=== PATIENT | female | born 1945 | race Caucasian/White ===

== ENCOUNTER 2017-03-15 09:22 | Outpatient (CLI) | payer MEDICARE, OTHER ==
--- NOTE | 2017-03-16 18:06 | Mammography Report ---
DIGITAL SCREENING MAMMOGRAM: 03/15/2017 CLINICAL INDICATION: A 71-year-old with history of benign right breast biopsy for screening. COMPARISON: 05/2015, 10/2013, 04/2012, 02/2011, 01/2010. TECHNIQUE: Routine CC and MLO projections were obtained of the breasts. FINDINGS: The breasts again demonstrate scattered fibroglandular densities bilaterally. A few punct ate, typically benign calcifications are present. No suspicious masses, clustered microcalcification s, or regions of architectural distortion are identified. IMPRESSION: BENIGN FINDINGS. RECOMMENDATION: Routine annual screening unless otherwise clinically indicated. BI-RADS category 2, benign findings. STANDARD QUALIFYING STATEMENTS 1. This examination was reviewed with the aid of Computer-Aided Detection (CAD). 2. A negative or benign imaging report should not delay biopsy if clinically suspicious findings are present. Consider surgical consultation if warranted. More than 5% of cancers are not identified by i maging. 3. Dense breasts may obscure an underlying neoplasm. JOB #: [id number] EXT JOB #:[id number]
== END 2017-03-15 09:23 | disposition home or self-care (01) ==
LOC: DI 09:22
PROVIDERS: ATTEND Family Medicine
DX: Z12.31 Encounter for screening mammogram for malignant neoplasm of breast (principal)
CPT/HCPCS: 77067

== ENCOUNTER 2017-03-18 08:24 | Outpatient (CLI) | payer MEDICARE, OTHER ==
[2017-03-18 13:30] LABS: ALBUMIN/GLOBULIN RATIO 1.1 (1.0-2.2); BILIRUBIN,TOTAL 0.7 mg/dL (0.2-1.0); BUN - BLOOD UREA NITROGEN 20 mg/dL (6-20); CALCIUM 9.4 mg/dL (8.5-10.3); CARBON DIOXIDE - CO2 28 mmol/L (21-32); CHLORIDE 98 mmol/L (101-111); CHOL/HDL RATIO 3.2 (<4.4); CHOLESTEROL 213 mg/dL; CREATININE 0.7 mg/dL (0.4-1.0); GFR - MDRD 82 (>89); GLUCOSE 94 mg/dL (70-100); HDL CHOLESTEROL 67 mg/dL; POTASSIUM 3.6 mmol/L (3.5-5.0); SODIUM 135 mmol/L (135-145); TOTAL PROTEIN 7.7 g/dL (6.7-8.2); TRIGLYCERIDES 56 mg/dL; VLDL CHOLESTEROL 11 mg/dL
== END 2017-03-18 08:25 | disposition home or self-care (01) ==
LOC: LAB.WCP 08:24
PROVIDERS: ATTEND Family Medicine
DX: I10 Essential (primary) hypertension (principal); E04.2 Nontoxic multinodular goiter; M81.0 Age-related osteoporosis without current pathological fracture
CPT/HCPCS: 36415; 80053; 80061; 84443

== ENCOUNTER 2017-04-24 09:59 | Emergency (ER) | payer MEDICARE, OTHER ==
[2017-04-24] MEDS ORDERED: LIDOCAINE PATCH 5% TOP STA (11:08)
--- NOTE | 2017-04-24 11:12 | ED Physician Documentation ---
History of Present Illness - Stated complaint Stated Complaint: LEFT HIP PX - Chief complaint Chief Complaint: Ext Problem - Additonal information Additional information: hx from pt known severe osteoporosis and hx spont pelvic fx severe posterior high left hip pain no trauma no rash worse with trying to pear weight unable to describe nature of pain but says it is 18/07 Review of Systems Constitutional: denies: Fever, Chills Cardiac: denies: Chest pain / pressure Respiratory: denies: Dyspnea GI: denies: Abdominal Pain Skin: denies: Rash Musculoskeletal: reports: Back pain, Joint pain Endocrine: denies: Easy bruising / bleeding Immunocompromised: denies: Immunocompromised PD PAST MEDICAL HISTORY - Past Medical History Past Medical History: Yes Cardiovascular: Hypertension Respiratory: None Neuro: None Endocrine/Autoimmune: HyPOthyroidism GI: None : None HEENT: None Psych: None Musculoskeletal: None Derm: None - Past Surgical History Past Surgical History: Yes /[employer]: Hysterectomy, Oophrectomy - Present Medications Home Medications: Ambulatory Orders Medication Instructions Recorded Confirmed Levothyroxine [Synthroid] 50 mcg PO QDAC 04/03/13 04/24/17 Lisinopril 10 mg PO DAILY 04/03/13 04/24/17 hydroCHLOROthiazide [Hydrodiuril] 25 mg PO DAILY 04/03/13 04/24/17 Cholecalciferol (Vitamin D3) 2,000 unit PO DAILY 05/09/15 04/24/17 [Vitamin D] Lidocaine Patch 5% [Lidoderm Patch] 1 each TOP DAILY PRN #10 patch 04/24/17 - Allergies Allergies/Adverse Reactions: Allergies Allergy/AdvReac Type Severity Reaction Status Date / Time No Known Drug Allergies Allergy Verified 04/03/13 10:01 - Social History Does the pt smoke?: No Smoking Status: Never smoker PD ED PE NORMAL - Vitals Vital signs reviewed: Yes - Cardiac Cardiac: RRR - Respiratory Respiratory: No respiratory distress, Clear bilaterally - Abdomen Abdomen: Soft, Non tender, Other (no pulsatile mass) - Back Back: No spinal TTP, Other (TTP high lateral posterior hip between SI and breater troch, not short or rotated, MSV intact) - Derm Derm: No rash Results - Vitals Vitals: Vital Signs - 24 hr 04/24/17 04/24/17 10:05 11:32 Temperature 36.7 C Heart Rate 109 H 106 H Respiratory 20 16 Rate Blood Pressure 171/88 H 152/74 H O2 Saturation 100 99 Oxygen O2 Source Room air - Rads (name of study) hip pelvis Radiology: See rad report (neg for acute, old rami fx and degen changes) PD MEDICAL DECISION MAKING - ED course ED course: no injury, chronic / old fx sup inf rami and degen changes but no acute process on xrays no rash to suggest shingles and that would be unlikely to be aggrevated by wt bearing no abd TTP or pulsatile mass no back pain, no radicular sx will reassure and dc with pain control and PMD fup pt able to ambulate in ER cautioned re shingles rash has a walker she can borrow Departure - Departure Disposition: Home, Self Care Clinical Impression: Arthritis Condition: Good Follow-Up: Karson Lennon MD [Provider Admit Priv/Credential] - Prescriptions: Lidocaine Patch 5% [Lidoderm Patch] 1 each TOP DAILY PRN #10 patch PRN Reason: Pain Comments: The xray does not show any new fractures. You do have degenerative changes / arthritis Your exam does not suggest an aneurysm or slipped disk I think it is OK for you to go home with lidocaine patches and tylenol as needed for the apin and borrowing the walker for extra support until you feel better As we discussed, sometimes shingles causes severe one sided pain for a few days before the rash becomes visible - please check your back every day and if you develop a one sided rash, see your PMD or come back to the ER for viral medications Otherwise follow up with Dr Lennon as needed - please have him check your blood pressure because it was high today
[2017-04-24] MEDS ORDERED: LIDOCAINE PATCH 5% TOP ONE (11:23)
[2017-04-24 11:34] VITALS: BP 152/74
--- NOTE | 2017-04-24 12:10 | XRAY Preliminary Report ---
Exam: XR Hip w/Pelvis 2-3V LT IMPRESSION: 1. Negative for acute fracture in the pelvis and left hip; no dislocation or subluxation. 2. Chronic focal deformity, likely old fracture in the left superior and inferior pubic rami. 3. 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 [facility] SITE ID: [id number]
--- NOTE | 2017-04-24 12:13 | XRAY Report ---
EXAM: LEFT HIP AND PELVIS RADIOGRAPHY EXAM DATE: 04/24/2017 11:13 AM. HISTORY: Severe high posterior lateral hip pain for 3 days. Osteoporosis, prior history of spontaneou s pelvic fracture. COMPARISONS: None. TECHNIQUE: 1 view of the pelvis and 1 view of the hip. FINDINGS: Bones: No left femur fracture or bone lesion. There is chronic deformity, likely old fracture in the left inferior ramus. There is also increased sclerotic density with expansile contour in the proximal part of the left superior pubic ramus, also suggesting posttraumatic changes. Joints: The bilateral hip demonstrated mild diminishment of the joint space with mild subchondral scl erotic reactions, greater in the right hip; the pubis symphysis, and sacroiliac joints and lower lumb ar spine also demonstrate mild degenerative changes. Soft Tissues: There is a calcific body in the inferior right lower pelvis, 9 x 13 mm, likely a nonspe cific soft tissue calcification. No soft tissue swelling. IMPRESSION: 1. Negative for acute fracture in the pelvis and left hip; no dislocation or subluxation. 2. Chronic focal deformity, likely old fracture in the left superior and inferior pubic rami. 3. 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 [facility] Referring Provider Line: [phone] SITE ID: [id number]
[2017-04-24] MEDS ORDERED: ACETAMINOPHEN 325 MG TABLET PO STA (12:31)
[2017-04-24] MEDS ORDERED: ACETAMINOPHEN 325 MG TABLET PO ONE (12:35)
== END 2017-04-24 12:44 | disposition home or self-care (01) ==
LOC: ED 09:59
DX: M16.12 Unilateral primary osteoarthritis, left hip (principal); M81.0 Age-related osteoporosis without current pathological fracture; I10 Essential (primary) hypertension; E03.9 Hypothyroidism, unspecified
CPT/HCPCS: 73502; 99283; A9270

== ENCOUNTER 2017-07-16 08:42 | Outpatient (CLI) | payer MEDICARE, OTHER ==
--- NOTE | 2017-07-16 16:19 | DEXA Report ---
DEXA SCAN: 07/16/2017 CLINICAL INDICATION: Postmenopausal. TECHNIQUE: Dual energy x-ray absorptiometry (DXA) was performed on a [employer] system. Regions measured are the AP spine, femoral neck, and, if needed, forearm. COMPARISON: None. In accordance with the International Society for Clinical Densitometry (ISCD) guidelines, data from previous exams may be reanalyzed using current recommendations and techniques. This is done to allow a more accurate basis for comparison with the current study. FINDINGS The data for the lumbar spine is as follows: REGION BMD (g/cm/cm) T-SCORE Z-SCORE L1 0.911 -1.8 0.2 L2 0.855 -2.9 -0.8 L3 1.212 0.1 2.2 L4 1.364 1.4 3.4 TOTAL(L2-L4) 1.187 -0.1 1.9 NOTE: All evaluable vertebrae are used for classification. The data for the hip is as follows: REGION BMD (g/cm/cm) T-SCORE Z-SCORE Neck 0.704 -2.4 -0.4 TOTAL 0.694 -2.5 -0.7 NOTE: The femoral neck or total proximal femur, whichever is lowest, is used for classification. IMPRESSION: THE WHO CLASSIFICATION BASED ON THE INTERNATIONAL REFERENCE STANDARD IS OSTEOPOROSIS. THE FRACTURE RISK IS HIGH. RECOMMENDATION: Patients with diagnosis of osteoporosis or osteopenia should have regular bone mineral density assessment. For those eligible for Medicare, routine testing is allowed once every 2 years. Testing frequency can be increased for patients who have rapidly progressing disease or for those who are receiving medical therapy to restore bone mass. COMMENT: World Health Organization (WHO) definitions for osteoporosis and osteopenia: NORMAL BMD: T-score at -1.0 or higher, fracture risk is low. OSTEOPENIA BMD: T-score between -1.0 and -2.5, fracture risk is increased. OSTEOPOROSIS BMD: T-score at -2.5 or lower, fracture risk high. National Osteoporosis Foundation recommends: 1. Obtain adequate dietary calcium (at least 1200 mg per day) and vitamin D (400 -800 international units per day). 2. Participate, as appropriate, in regular weightbearing and muscle- strengthening exercise. 3. Avoid tobacco use and reduce alcohol and caffeine intake. 4. For more detailed information see the website at www.NOF.org. MTDD
== END 2017-07-16 08:43 | disposition home or self-care (01) ==
LOC: DI 08:42
PROVIDERS: ATTEND Family Medicine
DX: M81.0 Age-related osteoporosis without current pathological fracture (principal)
CPT/HCPCS: 77080

== ENCOUNTER 2018-03-08 07:53 | Outpatient (CLI) | payer MEDICARE, OTHER ==
[2018-03-08 08:05] LABS: BASOPHILS % (AUTO) 0.5 %; EOSINOPHILS # (AUTO) 0.1 10^3/uL (0.0-0.7); EOSINOPHILS % (AUTO) 1.7 %; HGB - HEMOGLOBIN 12.9 g/dL (12.0-16.0); LYMPHOCYTES # (AUTO) 1.6 10^3/uL (1.5-3.5); LYMPHOCYTES % (AUTO) 22.6 %; MEAN CORPUSCULAR HEMOGLOBIN 30.8 pg (27.0-31.0); MEAN CORPUSCULAR VOLUME 90.5 fL (81.0-99.0); MEAN PLATELET VOLUME 6.6 fL (7.9-10.8); MONOCYTES # (AUTO) 0.6 10^3/uL (0.0-1.0); MONOCYTES % (AUTO) 8.6 %; NEUTROPHILS # (AUTO) 4.6 10^3/uL (1.5-6.6); NEUTROPHILS % (AUTO) 66.6 %; PLT - PLATELET COUNT 329 10^3/uL (130-450); RED BLOOD COUNT 4.18 10^6/uL (4.20-5.40); RED CELL DISTRIBUTION WIDTH 13.4 % (12.0-15.0)
[2018-03-08 08:22] LABS: ALBUMIN 3.8 g/dL (3.2-5.5); BILIRUBIN,TOTAL 0.5 mg/dL (0.2-1.0); CALCIUM 9.1 mg/dL (8.5-10.3); CREATININE 0.7 mg/dL (0.4-1.0); TOTAL PROTEIN 7.7 g/dL (6.7-8.2)
== END 2018-03-08 07:54 | disposition home or self-care (01) ==
LOC: LAB 07:53
PROVIDERS: ATTEND Family Medicine
DX: I10 Essential (primary) hypertension (principal); E04.2 Nontoxic multinodular goiter; M81.0 Age-related osteoporosis without current pathological fracture
CPT/HCPCS: 36415; 80053; 84443; 85025

== ENCOUNTER 2018-03-16 08:43 | Outpatient (CLI) | payer MEDICARE, OTHER ==
[2018-03-16 09:08] LABS: ALBUMIN 3.5 g/dL (3.2-5.5); ALBUMIN/GLOBULIN RATIO 0.9 (1.0-2.2); BASOPHILS # (AUTO) 0.1 10^3/uL (0.0-0.1); BASOPHILS % (AUTO) 1.1 %; BILIRUBIN,TOTAL 0.4 mg/dL (0.2-1.0); CALCIUM 8.9 mg/dL (8.5-10.3); CREATININE 0.7 mg/dL (0.4-1.0); EOSINOPHILS # (AUTO) 0.1 10^3/uL (0.0-0.7); EOSINOPHILS % (AUTO) 1.6 %; HGB - HEMOGLOBIN 12.6 g/dL (12.0-16.0); LYMPHOCYTES # (AUTO) 1.4 10^3/uL (1.5-3.5); LYMPHOCYTES % (AUTO) 21.2 %; MEAN CORPUSCULAR HEMOGLOBIN 31.2 pg (27.0-31.0); MEAN CORPUSCULAR HGB CONC 33.4 g/dL (32.0-36.0); MEAN CORPUSCULAR VOLUME 93.4 fL (81.0-99.0); MEAN PLATELET VOLUME 7.1 fL (7.9-10.8); MONOCYTES # (AUTO) 0.4 10^3/uL (0.0-1.0); MONOCYTES % (AUTO) 6.1 %; NEUTROPHILS # (AUTO) 4.6 10^3/uL (1.5-6.6); PLT - PLATELET COUNT 343 10^3/uL (130-450); RED BLOOD COUNT 4.02 10^6/uL (4.20-5.40); RED CELL DISTRIBUTION WIDTH 13.6 % (12.0-15.0); TOTAL PROTEIN 7.6 g/dL (6.7-8.2); WHITE BLOOD COUNT 6.5 x10^3/uL (4.8-10.8)
== END 2018-03-16 08:44 | disposition home or self-care (01) ==
LOC: LAB 08:43
PROVIDERS: ATTEND Family Medicine
DX: I10 Essential (primary) hypertension (principal); E04.2 Nontoxic multinodular goiter; M81.0 Age-related osteoporosis without current pathological fracture
CPT/HCPCS: 36415; 80048; 80053; 84443; 85025

== ENCOUNTER 2018-05-09 10:55 | Outpatient (CLI) | payer MEDICARE, OTHER ==
[2018-05-09 19:36] LABS: CREATININE 0.9 mg/dL (0.4-1.0)
== END 2018-05-09 10:56 | disposition home or self-care (01) ==
LOC: LAB.WCP 10:55
PROVIDERS: ATTEND Family Medicine
DX: R25.2 Cramp and spasm (principal); I10 Essential (primary) hypertension
CPT/HCPCS: 36415; 80048

== ENCOUNTER 2018-06-09 14:55 | Outpatient (CLI) | payer MEDICARE, OTHER ==
--- NOTE | 2018-06-10 10:14 | Mammography Report ---
Reason: SCREENING MAMMO Procedure Date: 06/09/2018 Accession Number: [id number] / [id number] Procedure: [facility] - Screening Mammo Dig Bilat CPT Code: FULL RESULT: EXAM: Screening Mammo Dig Bilat DATE: 06/09/2018 4:00 PM CLINICAL HISTORY: Routine screening. Prior history of benign right breast biopsy TECHNIQUE: Bilateral CC and MLO views were obtained. COMPARISON: 03/15/2017, 05/24/2015, and 11/01/2013 FINDINGS: The breast tissue is heterogeneously dense. There is been no significant interval change. No suspicious masses, clustered microcalcifications, or regions of architectural distortion are identified. IMPRESSION: Negative examination RECOMMENDATION: Routine annual screening unless otherwise clinically indicated. BIRADS CATEGORY 1: Negative STANDARD QUALIFYING STATEMENTS: 1. This examination was reviewed with the aid of Computer-Aided Detection (CAD). 2. A negative or benign imaging report should not delay biopsy if clinically suspicious findings are present. Consider surgical consultation if warrented. More than 5% of cancers are not identified by imaging. 3. Dense breasts may obscure an underlying neoplasm.
== END 2018-06-09 14:56 | disposition home or self-care (01) ==
LOC: DI 14:55
PROVIDERS: ATTEND Family Medicine
DX: Z12.31 Encounter for screening mammogram for malignant neoplasm of breast (principal)
CPT/HCPCS: 77067

== ENCOUNTER 2018-06-09 15:01 | Outpatient (CLI) | payer MEDICARE, OTHER | END 2018-06-09 15:02 | disposition home or self-care (01) | LOC: RT 15:01 | PROVIDERS: ATTEND Internal Medicine Gastroenterology | DX: I10 Essential (primary) hypertension (principal) | CPT/HCPCS: 93005 ==

== ENCOUNTER 2018-06-16 08:30 | Day surgery (SDC) | payer MEDICARE, OTHER ==
[2018-06-16] MEDS ORDERED: LACTATED RINGERS 1,000 ML IV ONE ×2 (08:55→11:28)
[2018-06-16] MEDS ORDERED: MIDAZOLAM 2 MG/2 ML VIAL IVP ONE (10:37)
[2018-06-16] MEDS ORDERED: fentaNYL 250 MCG/5 ML VIAL IVP ONE (10:37)
[2018-06-16 12:49] VITALS: BP 137/70
== END 2018-06-16 08:31 | disposition home or self-care (01) ==
LOC: SDS 08:30
PROVIDERS: ATTEND Internal Medicine Gastroenterology
PROC: 0DBP8ZZ Excision of Rectum, Via Natural or Artificial Opening Endoscopic (ICD-10-PCS; principal; 2018-06-16 09:45)
DX: Z12.11 Encounter for screening for malignant neoplasm of colon (principal); D12.8 Benign neoplasm of rectum; K57.30 Diverticulosis of large intestine without perforation or abscess without bleeding; I10 Essential (primary) hypertension; E03.9 Hypothyroidism, unspecified
CPT/HCPCS: 45380; J3010; J7120

== ENCOUNTER 2019-03-07 09:11 | Outpatient (CLI) | payer MEDICARE, OTHER ==
[2019-03-07 12:39] LABS: BASOPHILS % (AUTO) 0.5 %; EOSINOPHILS # (AUTO) 0.2 10^3/uL (0.0-0.7); EOSINOPHILS % (AUTO) 3.4 %; HGB - HEMOGLOBIN 12.5 g/dL (12.0-16.0); LYMPHOCYTES # (AUTO) 1.5 10^3/uL (1.5-3.5); LYMPHOCYTES % (AUTO) 24.4 %; MEAN CORPUSCULAR HEMOGLOBIN 30.6 pg (27.0-31.0); MEAN CORPUSCULAR HGB CONC 32.9 g/dL (32.0-36.0); MEAN CORPUSCULAR VOLUME 92.9 fL (81.0-99.0); MEAN PLATELET VOLUME 8.1 fL (7.9-10.8); MONOCYTES # (AUTO) 0.4 10^3/uL (0.0-1.0); MONOCYTES % (AUTO) 6.9 %; NEUTROPHILS # (AUTO) 4.1 10^3/uL (1.5-6.6); NEUTROPHILS % (AUTO) 64.8 %; PLT - PLATELET COUNT 372 10^3/uL (130-450); RED BLOOD COUNT 4.09 10^6/uL (4.20-5.40); RED CELL DISTRIBUTION WIDTH 13.9 % (12.0-15.0); WHITE BLOOD COUNT 6.3 x10^3/uL (4.8-10.8)
[2019-03-07 12:47] LABS: ALBUMIN 3.9 g/dL (3.2-5.5); ALKALINE PHOSPHATASE 59 IU/L (42-121); ALT ALANINE AMINOTRANSFERASE 12 IU/L (10-60); AST ASPARTATE AMINOTRANSFERASE 20 IU/L (10-42); BILIRUBIN,TOTAL 0.6 mg/dL (0.2-1.0); BUN - BLOOD UREA NITROGEN 17 mg/dL (6-20); CALCIUM 9.2 mg/dL (8.5-10.3); CARBON DIOXIDE - CO2 24 mmol/L (21-32); CHLORIDE 101 mmol/L (101-111); CHOL/HDL RATIO 3.1 (<4.4); CHOLESTEROL 195 mg/dL; CREATININE 0.7 mg/dL (0.4-1.0); GFR - MDRD 82 (>89); GLUCOSE 104 mg/dL (70-100); HDL CHOLESTEROL 63 mg/dL; LDL CHOLESTEROL,CALCULATED 119 mg/dL; LDL/HDL RATIO 1.9 (<4.4); SODIUM 135 mmol/L (135-145); TOTAL PROTEIN 7.9 g/dL (6.7-8.2); VLDL CHOLESTEROL 13 mg/dL
== END 2019-03-07 09:12 | disposition home or self-care (01) ==
LOC: LAB.WCP 09:11
PROVIDERS: ATTEND Family Medicine
DX: E03.9 Hypothyroidism, unspecified (principal); I10 Essential (primary) hypertension
CPT/HCPCS: 36415; 80053; 80061; 83721; 84443; 85025

== ENCOUNTER 2021-01-17 08:00 | Outpatient (CLI) | payer MEDICARE, OTHER ==
[2021-01-17 18:20] LABS: BASOPHILS # (AUTO) 0.1 10^3/uL (0.0-0.1); BASOPHILS % (AUTO) 0.7 %; EOSINOPHILS # (AUTO) 0.2 10^3/uL (0.0-0.7); EOSINOPHILS % (AUTO) 1.8 %; HCT - HEMATOCRIT 38.2 % (37.0-47.0); HGB - HEMOGLOBIN 12.1 g/dL (12.0-16.0); LYMPHOCYTES # (AUTO) 1.4 10^3/uL (1.5-3.5); LYMPHOCYTES % (AUTO) 16.2 %; MEAN CORPUSCULAR HEMOGLOBIN 30.8 pg (27.0-31.0); MEAN CORPUSCULAR HGB CONC 31.7 g/dL (32.0-36.0); MEAN CORPUSCULAR VOLUME 97.2 fL (81.0-99.0); MEAN PLATELET VOLUME 9.5 fL (7.9-10.8); MONOCYTES # (AUTO) 0.6 10^3/uL (0.0-1.0); MONOCYTES % (AUTO) 7.2 %; NEUTROPHILS # (AUTO) 6.5 10^3/uL (1.5-6.6); NEUTROPHILS % (AUTO) 73.9 %; PLT - PLATELET COUNT 451 10^3/uL (130-450); RED BLOOD COUNT 3.93 10^6/uL (4.20-5.40); RED CELL DISTRIBUTION WIDTH 13.2 % (12.0-15.0); WHITE BLOOD COUNT 8.8 x10^3/uL (4.8-10.8)
[2021-01-17 18:41] LABS: ALBUMIN 3.8 g/dL (3.2-5.5); ALBUMIN/GLOBULIN RATIO 0.9 (1.0-2.2); ALKALINE PHOSPHATASE 72 IU/L (42-121); ALT ALANINE AMINOTRANSFERASE 15 IU/L (10-60); AST ASPARTATE AMINOTRANSFERASE 18 IU/L (10-42); BILIRUBIN,TOTAL 0.3 mg/dL (0.2-1.0); BUN - BLOOD UREA NITROGEN 22 mg/dL (6-20); CALCIUM 9.8 mg/dL (8.5-10.3); CARBON DIOXIDE - CO2 26 mmol/L (21-32); CHLORIDE 103 mmol/L (101-111); CHOLESTEROL 202 mg/dL; CREATININE 0.9 mg/dL (0.4-1.0); GFR - MDRD 61 (>89); GLUCOSE 107 mg/dL (70-100); HDL CHOLESTEROL 68 mg/dL; LDL CHOLESTEROL,CALCULATED 116 mg/dL; LDL/HDL RATIO 1.7 (<4.4); POTASSIUM 4.3 mmol/L (3.5-5.0); SODIUM 140 mmol/L (135-145); TOTAL PROTEIN 7.9 g/dL (6.7-8.2); TRIGLYCERIDES 92 mg/dL; VLDL CHOLESTEROL 18 mg/dL
[2021-01-17 18:52] LABS: THYROID STIMULATING HORMONE 1.58 uIU/mL (0.34-5.60)
== END 2021-01-17 23:59 | disposition home or self-care (01) ==
LOC: LAB.WCP 08:00
PROVIDERS: ATTEND Nurse Practitioner Family
DX: E03.9 Hypothyroidism, unspecified (principal); I10 Essential (primary) hypertension
CPT/HCPCS: 36415; 80053; 80061; 83721; 84443; 85025

== ENCOUNTER 2021-01-27 12:28 | Outpatient (CLI) | payer MEDICARE, OTHER ==
--- NOTE | 2021-01-28 13:23 | Mammography Report ---
BILATERAL DIGITAL SCREENING MAMMOGRAM 3D/2D: 01/27/2021 CLINICAL: Routine screening. Comparison is made to exams dated: 06/09/2018 mammogram, 03/15/2017 mammogram, 05/24/2015 mammogram, and 11/01/2013 mammogram - [facility]. The tissue of both breasts is heterogeneously d ense. This may lower the sensitivity of mammography. No significant masses, calcifications, or other findings are seen in either breast. There has been no significant interval change. IMPRESSION: NEGATIVE There is no mammographic evidence of malignancy. A 1 year screening mammogram is recommended. This exam was interpreted at Station ID: [id number]. NOTE: For mammograms, a report in lay terms will be sent to the patient. Approximately 15% of breast malignancies will not be visualized mammographically. In the management of a palpable breast mass, a negative mammogram must not discourage biopsy of a clinically suspicious lesion. Electronically Signed By: Marylou ricks/ion:01/27/2021 20:10:31 ACR BI-RADS Category 1: Negative 3341F PARENCHYMAL PATTERN: (D) - The breast(s) demonstrate(s) heterogeneously dense fibroglandular fernie marmolejo. BI-RADS CATEGORY: (1) - 1 RECOMMENDATION: (ANNUAL) - Recommend routine annual screening mammography. [id number] 1 year screening LATERALITY: (B)
== END 2021-01-27 12:29 | disposition home or self-care (01) ==
LOC: DI 12:28
DX: Z12.31 Encounter for screening mammogram for malignant neoplasm of breast (principal)

== ENCOUNTER 2021-03-05 07:41 | Outpatient (CLI) | payer MEDICARE, OTHER ==
--- NOTE | 2021-03-05 16:32 | DEXA Report ---
PROCEDURE: Dexa Spine and/or Hip INDICATIONS: HYPOTHYROIDISM, GOITER, MULTINODULAR, OSTEOPOROSIS TECHNIQUE: Dual energy x-ray absorptiometry (DXA) was performed on a [employer] System. Regions measur ed are the AP Spine, femoral neck, and if needed forearm. COMPARISON: None. FINDINGS: Lumbar Spine: Bone Mineral Density 0.85 g/cm/cm,T score -2.3, osteopenia Left Hip: Bone Mineral Density 0.715 g/cm/cm,T score -2.3, osteopenia Left Femoral Neck: Bone Mineral Density 0.753 g/cm/cm, T score -2.1, osteopenia (T score greater or equal to -1.0: NORMAL) (T score from -1.1 to -2.4: OSTEOPENIA) (T score less than or equal to -2.5 to: OSTEOPOROSIS) Impression: Osteopenia. Patients with diagnosis of osteoporosis or osteopenia should have regular bone mineral density assess ment. For those eligible for Medicare, routine testing is allowed once every 2 years. Testing frequ ency can be increased for patients who have rapidly progressing disease or for those who are receivin g medical therapy to restore bone mass. Reviewed by: Adriana Parrish MD, PhD on 03/05/2021 4:31 PM PDT Approved by: Adriana Parrish MD, PhD on 03/05/2021 4:31 PM PDT Station ID: [id number]
--- NOTE | 2021-03-05 17:18 | Ultrasound Report ---
PROCEDURE: Head or Neck Soft Tissue INDICATIONS: HYPOTHYROIDISM, GOITER, MULTINODULAR, OSTEOPOROSIS TECHNIQUE: Real time scanning was performed of the neck region of interest, with image documentation . COMPARISON: Prior thyroid ultrasound dated 02/19/2011. FINDINGS: No soft tissue neck abnormality seen bilaterally IMPRESSION: PROCEDURE: Head or Neck Soft Tissue INDICATIONS: HYPOTHYROIDISM, GOITER, MULTINODULAR, OSTEOPOROSIS TECHNIQUE: Real-time scanning was performed of the thyroid gland, with image documentation. COMPARISON: None FINDINGS: Right: Thyroid lobe measures 3.6 x 1.3 x 0.6 cm, and is homogeneous in echotexture. Left: Thyroid lobe measures 5.1 x 2.9 x 3.9 cm, and is homogenous in echotexture. Isthmus: 5.0 mm thick. Nodule number: One Location: Right inferior Size: Unchanged at 0.8 x 0.8 x 0.7 cm. Composition: Cystic Echogenicity: Anechoic Shape: wider than tall. Margins: Smooth Echogenic foci: None Total points: 0 ACR TI-RADS category: Colloid cyst Nodule number: Two Location: Right inferior Size: 0.5 x 0.5 x 0.3 cm. Composition: Predominately solid Echogenicity: Hypoechoic Shape: wider than tall. Margins: Smooth Echogenic foci: Punctate echogenic foci Total points: 7 ACR TI-RADS category: Highly suspicious Nodule number: Three Location: Left Size: Slightly increased at at 5.1 x 2.9 x 3.9 cm. Composition: Solid Echogenicity: Hyperechoic Shape: wider than tall. Margins: Smooth Echogenic foci: Macrocalcifications Total points: 5 ACR TI-RADS category: Moderately suspicious IMPRESSION: Slight increase in size of moderately suspicious left thyroid nodule. Recommend sonograp hically directed fine needle aspiration for pathologic diagnosis. ACR TI-RADS definitions and recommendations: TI-RADS 1 (benign): 0 points. FNA not needed. TI-RADS 2 (not suspicious): 2 points. FNA not needed. TI-RADS 3 (mildly suspicious): 3 points. ? FNA if 2.5 cm or larger, follow up if 1.5 cm or larger (at 1, 3, and 5 years). TI-RADS 4 (moderately suspicious): 4-6 points. ? FNA if 1.5 cm or larger, follow up if 1 cm or larger (at 1, 2, 3, and 5 years). TI-RADS 5 (highly suspicious): 7 points or more. ? FNA if 1 cm or larger, follow up if 0.5 cm or larger (every year for 5 years). Reviewed by: KOFI Dominique on 03/05/2021 5:17 PM PDT Approved by: Rick Gorman MD on 03/05/2021 5:17 PM PDT Station ID: [id number]
== END 2021-03-05 07:42 | disposition home or self-care (01) ==
LOC: DI 07:41
PROVIDERS: ATTEND Nurse Practitioner Family
DX: E04.2 Nontoxic multinodular goiter (principal); M85.89 Other specified disorders of bone density and structure, multiple sites

== ENCOUNTER 2021-03-31 13:45 | Outpatient (CLI) | payer MEDICARE, OTHER ==
[~2021-03-31 13:45] MED LIST: BUFFERED LIDOCAINE 10 ML SYRINGE ONE
[2021-03-31] MEDS ORDERED: BUFFERED LIDOCAINE 10 ML SYRINGE IU ONE (15:09)
--- NOTE | 2021-03-31 15:50 | Ultrasound Report ---
PROCEDURE: FNA Bx w/US Gnd 1st les INDICATIONS: MULTINODULAR GOITER TECHNIQUE: The indications, alternatives, benefits, risks, and complications of the procedure were explained to the patient. Written informed consent was obtained and placed in the chart. The area of interest wa s examined sonographically and a site was chosen for ultrasound guided percutaneous sampling. The sk in was prepared and draped in the usual fashion, and anesthetized with 1% lidocaine infiltrated from the skin down to the lesion. Multiple passes were then performed, with contents emptied into an formerly [facility] pathology specimen container. A bandage was applied to the area of access at completion of t he study. COMPARISON: Thyroid ultrasound 03/05/2021 FINDINGS: Location(s) of lesion(s) sampled: Left inferior lobe [facility]: 25 gauge hypodermic needles. Number of passes: 5 Medications: 1% lidocaine for local anaesthesia. Complications: None. IMPRESSION: Successful ultrasound-guided left inferior lobe fine needle aspiration, with cytology results pending . Reviewed by: Vanessa Jones MD on 03/31/2021 3:49 PM PDT Approved by: Vanessa Jones MD on 03/31/2021 3:49 PM PDT Station ID: [id number]
== END 2021-03-31 13:46 | disposition home or self-care (01) ==
LOC: DI 13:45
PROVIDERS: ATTEND Physician Assistant Medical
DX: E04.2 Nontoxic multinodular goiter (principal)
CPT/HCPCS: 10005

== ENCOUNTER 2021-07-16 11:34 | Outpatient (CLI) | payer MEDICARE, OTHER ==
[2021-07-16 18:22] LABS: BILIRUBIN,TOTAL 0.5 mg/dL (0.2-1.0); CALCIUM 9.5 mg/dL (8.5-10.3); CREATININE 0.8 mg/dL (0.4-1.0); POTASSIUM 4.2 mmol/L (3.5-5.0)
[2021-07-16 18:38] LABS: BASOPHILS # (AUTO) 0.1 10^3/uL (0.0-0.1); BASOPHILS % (AUTO) 0.6 %; EOSINOPHILS # (AUTO) 0.2 10^3/uL (0.0-0.7); EOSINOPHILS % (AUTO) 2.8 %; HCT - HEMATOCRIT 39.3 % (37.0-47.0); HGB - HEMOGLOBIN 12.3 g/dL (12.0-16.0); LYMPHOCYTES # (AUTO) 1.7 10^3/uL (1.5-3.5); LYMPHOCYTES % (AUTO) 21.4 %; MEAN CORPUSCULAR HEMOGLOBIN 30.7 pg (27.0-31.0); MEAN CORPUSCULAR HGB CONC 31.3 g/dL (32.0-36.0); MEAN PLATELET VOLUME 9.8 fL (7.9-10.8); MONOCYTES # (AUTO) 0.6 10^3/uL (0.0-1.0); MONOCYTES % (AUTO) 7.1 %; NEUTROPHILS # (AUTO) 5.4 10^3/uL (1.5-6.6); NEUTROPHILS % (AUTO) 67.2 %; PLT - PLATELET COUNT 443 10^3/uL (130-450); RED BLOOD COUNT 4.01 10^6/uL (4.20-5.40); RED CELL DISTRIBUTION WIDTH 13.3 % (12.0-15.0)
[2021-07-16 18:45] LABS: THYROID STIMULATING HORMONE 1.69 uIU/mL (0.34-5.60)
[2021-07-18 14:32] LABS: THYROID PEROXIDASE ANTIBODIES 1 IU/mL (<9)
== END 2021-07-16 23:59 | disposition home or self-care (01) ==
LOC: LAB.WCP 11:34
PROVIDERS: ATTEND Family Medicine
DX: I10 Essential (primary) hypertension (principal); E04.2 Nontoxic multinodular goiter
CPT/HCPCS: 36415; 80053; 84443; 85025; 86376; 86800

== ENCOUNTER 2022-01-15 11:22 | Outpatient (CLI) | payer MEDICARE, OTHER ==
--- NOTE | 2022-01-16 10:07 | Ultrasound Report ---
PROCEDURE: Head or Neck Soft Tissue INDICATIONS: MULTINODULAR GOITER TECHNIQUE: Real time scanning was performed of the neck region of interest, with image documentation . COMPARISON: Prior studies dating back to March 05, 2021. FINDINGS: Right: Thyroid lobe measures 3.7 x 1.4 x 1.2 cm, and is homogenous in echotexture. Left: Thyroid lobe measures 5.3 x 2.4 x 2.9 cm, and is homogenous in echotexture. Isthmus: 0.3 cm Nodule number: 1 Location: Right inferior Size: 0.8 x 0.7 x 1 cm; previously 0.8 x 0.8 x 0.7 cm Composition: Cystic Echogenicity: Anechoic Shape: Wider than tall. Margins: Smooth Echogenic foci: None Total points: 0 ACR TI-RADS category: TR 1; benign Nodule number: 2 Location: Right inferior Size: 0.6 x 0.4 x 0.5 cm; previously 0.5 x 0.5 x 0.3 cm Composition: Predominantly solid Echogenicity: Hypoechoic Shape: Wider than tall. Margins: Lobulated Echogenic foci: Punctate Total points: 9 ACR TI-RADS category: TR 5; highly suspicious. Follow-up every year for 5 years. Nodule number: 3 Location: Isthmus left Size: 0.5 x 0.4 x 0.6 cm; previously seen Composition: Solid Echogenicity: Hypoechoic Shape: Wider than tall. Margins: Smooth Echogenic foci: None Total points: 4 ACR TI-RADS category: TR 4; moderately suspicious. Nodule number: 4 Location: Left inferior/mid Size: 4.5 x 2.7 x 3.7 cm; previously 5.1 x 2.9 x 3.9 cm Composition: Solid Echogenicity: Hyperechoic Shape: Wider than tall. Margins: Lobular Echogenic foci: Macrocalcification Total points: 4 ACR TI-RADS category: TR 4; moderately suspicious; previously biopsied. Nodule number: 5 Location: Left superior, posterior Size: 1 x 0.6 x 0.7 cm; previously seen Composition: Cystic Echogenicity: Anechoic Shape: Wider than tall. Margins: Irregular Echogenic foci: None Total points: 0 ACR TI-RADS category: TR 1: Benign IMPRESSION: Bilateral thyroid nodules as detailed above. The left inferior lesion was recently biopsied on March 052020. Reviewed by: Javan Daniels MD on 01/16/2022 10:06 AM PDT Approved by: Javan Daniels MD on 01/16/2022 10:06 AM PDT Station ID: [id number]
== END 2022-01-15 11:23 | disposition home or self-care (01) ==
LOC: DI 11:22
PROVIDERS: ATTEND Family Medicine
DX: E04.2 Nontoxic multinodular goiter (principal)

== ENCOUNTER 2022-01-26 08:03 | Outpatient (CLI) | payer MEDICARE, OTHER ==
[2022-01-26 08:17] LABS: BASOPHILS % (AUTO) 0.5 %; EOSINOPHILS # (AUTO) 0.1 10^3/uL (0.0-0.7); EOSINOPHILS % (AUTO) 1.5 %; HCT - HEMATOCRIT 36.7 % (37.0-47.0); LYMPHOCYTES # (AUTO) 1.6 10^3/uL (1.5-3.5); LYMPHOCYTES % (AUTO) 21.6 %; MEAN CORPUSCULAR HEMOGLOBIN 30.9 pg (27.0-31.0); MEAN CORPUSCULAR HGB CONC 32.7 g/dL (32.0-36.0); MEAN CORPUSCULAR VOLUME 94.6 fL (81.0-99.0); MEAN PLATELET VOLUME 8.4 fL (7.9-10.8); MONOCYTES # (AUTO) 0.6 10^3/uL (0.0-1.0); MONOCYTES % (AUTO) 7.3 %; NEUTROPHILS # (AUTO) 5.2 10^3/uL (1.5-6.6); NEUTROPHILS % (AUTO) 68.7 %; PLT - PLATELET COUNT 368 10^3/uL (130-450); RED BLOOD COUNT 3.88 10^6/uL (4.20-5.40); RED CELL DISTRIBUTION WIDTH 13.2 % (12.0-15.0); WHITE BLOOD COUNT 7.5 x10^3/uL (4.8-10.8)
[2022-01-26 08:37] LABS: ALBUMIN 3.7 g/dL (3.2-5.5); ALBUMIN/GLOBULIN RATIO 0.9 (1.0-2.2); ALKALINE PHOSPHATASE 67 IU/L (42-121); ALT ALANINE AMINOTRANSFERASE 13 IU/L (10-60); AST ASPARTATE AMINOTRANSFERASE 18 IU/L (10-42); BILIRUBIN,TOTAL 0.7 mg/dL (0.2-1.0); BUN - BLOOD UREA NITROGEN 21 mg/dL (6-20); CALCIUM 9.1 mg/dL (8.5-10.3); CARBON DIOXIDE - CO2 25 mmol/L (21-32); CHLORIDE 101 mmol/L (101-111); CHOL/HDL RATIO 2.7 (<4.4); CHOLESTEROL 185 mg/dL; CREATININE 0.6 mg/dL (0.4-1.0); GFR - MDRD 97 (>89); GLUCOSE 134 mg/dL (70-100); HDL CHOLESTEROL 69 mg/dL; LDL CHOLESTEROL,CALCULATED 108 mg/dL; LDL/HDL RATIO 1.6 (<4.4); POTASSIUM 3.5 mmol/L (3.5-5.0); SODIUM 135 mmol/L (135-145); TOTAL PROTEIN 7.9 g/dL (6.7-8.2); TRIGLYCERIDES 42 mg/dL; VLDL CHOLESTEROL 8 mg/dL
[2022-01-26 08:48] LABS: THYROID STIMULATING HORMONE 1.76 uIU/mL (0.34-5.60)
== END 2022-01-26 08:04 | disposition home or self-care (01) ==
LOC: LAB 08:03
PROVIDERS: ATTEND Nurse Practitioner Family
DX: E03.9 Hypothyroidism, unspecified (principal); I10 Essential (primary) hypertension
CPT/HCPCS: 36415; 80053; 80061; 83721; 84443; 85025

== ENCOUNTER 2022-10-27 09:10 | Outpatient (CLI) | payer MEDICARE, OTHER ==
--- NOTE | 2022-10-27 15:37 | Mammography Report ---
BILATERAL DIGITAL SCREENING MAMMOGRAM 3D/2D: 10/27/2022 CLINICAL: Routine screening. Comparison is made to exams dated: 01/27/2021 mammogram, 06/09/2018 mammogram, 03/15/2017 mammogram, 05/05 mammogram, and 11/01/2013 mammogram - [facility]. Both breasts are heterogeneously dense, which may obscure small masses (category c / 51-75% glandular tissue). No significant masses, calcifications, or other findings are seen in either breast. There has been no significant interval change. IMPRESSION: NEGATIVE There is no mammographic evidence of malignancy. A 1 year screening mammogram is recommended. Based on the Tyrer Cuzick model (a risk assessment model) the patients lifetime risk is 3.3% and her 10 year risk is 0.0%. According to the ACR, ACS, and NCCN guidelines, an annual breast MRI exam marnie g with mammogram is recommended if the patients lifetime risk is 20% or greater. This exam was interpreted at Station ID: [id number]. NOTE: For mammograms, a report in lay terms will be sent to the patient. Approximately 15% of breast malignancies will not be visualized mammographically. In the management of a palpable breast mass, a negative mammogram must not discourage biopsy of a clinically suspicious lesion. Electronically Signed By: Yvon Mejia M.D. acr/penrad:10/27/2022 10:10:11 ACR BI-RADS Category 1: Negative 3341F PARENCHYMAL PATTERN: (D) - The breast(s) demonstrate(s) heterogeneously dense fibroglandular fernie marmolejo. BI-RADS CATEGORY: (1) - 1 RECOMMENDATION: (ANNUAL) - Recommend routine annual screening mammography. [id number] 1 year screening LATERALITY: (B)
== END 2022-10-27 09:11 | disposition home or self-care (01) ==
LOC: DI 09:10
DX: Z12.31 Encounter for screening mammogram for malignant neoplasm of breast (principal)

== ENCOUNTER 2023-01-05 15:10 | Outpatient (CLI) | payer MEDICARE, OTHER ==
--- NOTE | 2023-01-06 12:00 | Ultrasound Report ---
PROCEDURE: Head or Neck Soft Tissue INDICATIONS: THYROID NODULE TECHNIQUE: Real-time scanning was performed of the thyroid gland, with image documentation. COMPARISON: None FINDINGS: Right: Thyroid lobe measures 4.0 x 1.0 x 1.4 cm, and is homogeneous in echotexture. Left: Thyroid lobe measures 4.2 x 3.4 x 4.9 cm, and is homogenous in echotexture. Isthmus: 5 mm thick. Nodule number: One Location: Right lobe Size: 0.9 x 0.7 x 0.7 cm compared to 0.8 x 0.7 x 1.0 cm. Composition: Cystic. Echogenicity: Anechoic. Shape: wider than tall. Margins: Smooth (0 points). Echogenic foci: None (0 points). Total points: 0 ACR TI-RADS category: 0. Nodule number: Two Location: Right Size: 0.6 x 0.4 x 0.4 centimeters compared to 0.6 0.4 x 0.5 cm. Composition: Mixed. Echogenicity: Hypoechoic. Shape: wider than tall. Margins: Smooth (0 points). Echogenic foci: None Total points: 3 ACR TI-RADS category: 3. Nodule number: Three Location: Right Size: 0.6 x 0.4 x 0.5 cm compared to 0.5 x 0.4 x 0.6 cm. Composition: Mixed. Echogenicity: Hypoechoic. Shape: wider than tall. Margins: Smooth (0 points). Echogenic foci: None (0 points). Total points: 3 ACR TI-RADS category: 3. Nodule number: Four Location: Left Size: 4.1 x 3.8 x 5.1 cm compared to 4.5 x 2.7 x 3.7 cm. Composition: Solid. Echogenicity: Hyperechoic Shape: wider than tall. Margins: Smooth (0 points). Echogenic foci: Macrocalcifications. Total points: 4 ACR TI-RADS category: 4. This lesion was previously biopsied. Nodule number: 5 Location: Left Size: 0.9 x 1.1 x 0.7 cm compared to 1.0 x 0.6 x 0.7 cm. Composition: Cystic. Echogenicity: Anechoic. Shape: wider than tall. Margins: Smooth (0 points). Echogenic foci: None (0 points). Total points: 0 ACR TI-RADS category: 0. IMPRESSION: Bilateral thyroid nodules overall stable compared to prior exam. ACR TI-RADS definitions and recommendations: TI-RADS 1 (benign): 0 points. FNA not needed. TI-RADS 2 (not suspicious): 2 points. FNA not needed. TI-RADS 3 (mildly suspicious): 3 points. "FNA if 2.5 cm or larger, follow up if 1.5 cm or larger (at 1, 3, and 5 years). TI-RADS 4 (moderately suspicious): 4-6 points. "FNA if 1.5 cm or larger, follow up if 1 cm or larger (at 1, 2, 3, and 5 years). TI-RADS 5 (highly suspicious): 7 points or more. "FNA if 1 cm or larger, follow up if 0.5 cm or larger (every year for 5 years). Reviewed by: Vanessa Jones MD on 01/06/2023 11:58 AM PDT Approved by: Vanessa Jones MD on 01/06/2023 11:58 AM PDT Station ID: [id number]
== END 2023-01-05 15:11 | disposition home or self-care (01) ==
LOC: DI 15:10
PROVIDERS: ATTEND Nurse Practitioner Family
DX: E04.2 Nontoxic multinodular goiter (principal)

== ENCOUNTER 2023-03-16 08:29 | Outpatient (CLI) | payer MEDICARE, OTHER ==
[2023-03-16 08:43] LABS: BASOPHILS % (AUTO) 0.5 %; EOSINOPHILS # (AUTO) 0.2 10^3/uL (0.0-0.7); EOSINOPHILS % (AUTO) 2.7 %; HCT - HEMATOCRIT 36.8 % (37.0-47.0); HGB - HEMOGLOBIN 11.9 g/dL (12.0-16.0); LYMPHOCYTES # (AUTO) 1.7 10^3/uL (1.5-3.5); LYMPHOCYTES % (AUTO) 23.5 %; MEAN CORPUSCULAR HEMOGLOBIN 30.1 pg (27.0-31.0); MEAN CORPUSCULAR HGB CONC 32.3 g/dL (32.0-36.0); MEAN CORPUSCULAR VOLUME 92.9 fL (81.0-99.0); MEAN PLATELET VOLUME 8.7 fL (7.9-10.8); MONOCYTES # (AUTO) 0.5 10^3/uL (0.0-1.0); MONOCYTES % (AUTO) 7.4 %; NEUTROPHILS # (AUTO) 4.8 10^3/uL (1.5-6.6); NEUTROPHILS % (AUTO) 65.6 %; PLT - PLATELET COUNT 424 10^3/uL (130-450); RED BLOOD COUNT 3.96 10^6/uL (4.20-5.40); RED CELL DISTRIBUTION WIDTH 13.1 % (12.0-15.0); WHITE BLOOD COUNT 7.3 x10^3/uL (4.8-10.8)
[2023-03-16 08:55] LABS: ALBUMIN 3.6 g/dL (3.2-5.5); ALBUMIN/GLOBULIN RATIO 0.8 (1.0-2.2); BILIRUBIN,TOTAL 0.4 mg/dL (0.2-1.0); CALCIUM 8.9 mg/dL (8.5-10.3); CREATININE 0.7 mg/dL (0.4-1.0); POTASSIUM 3.7 mmol/L (3.5-5.0); TOTAL PROTEIN 8.3 g/dL (6.7-8.2)
[2023-03-16 09:12] LABS: THYROID STIMULATING HORMONE 1.54 uIU/mL (0.34-5.60)
== END 2023-03-16 08:30 | disposition home or self-care (01) ==
LOC: LAB 08:29
PROVIDERS: ATTEND Nurse Practitioner Family
DX: I10 Essential (primary) hypertension (principal); E03.9 Hypothyroidism, unspecified
CPT/HCPCS: 36415; 80053; 84443; 85025

== ENCOUNTER 2023-05-07 08:15 | Outpatient (CLI) | payer MEDICARE, OTHER ==
[2023-05-07 08:28] LABS: BASOPHILS # (AUTO) 0.1 10^3/uL (0.0-0.1); BASOPHILS % (AUTO) 0.6 %; EOSINOPHILS # (AUTO) 0.3 10^3/uL (0.0-0.7); HCT - HEMATOCRIT 37.9 % (37.0-47.0); HGB - HEMOGLOBIN 12.1 g/dL (12.0-16.0); LYMPHOCYTES % (AUTO) 24.4 %; MEAN CORPUSCULAR HEMOGLOBIN 30.2 pg (27.0-31.0); MEAN CORPUSCULAR HGB CONC 31.9 g/dL (32.0-36.0); MEAN CORPUSCULAR VOLUME 94.5 fL (81.0-99.0); MEAN PLATELET VOLUME 8.5 fL (7.9-10.8); MONOCYTES # (AUTO) 0.6 10^3/uL (0.0-1.0); MONOCYTES % (AUTO) 7.4 %; NEUTROPHILS # (AUTO) 5.1 10^3/uL (1.5-6.6); NEUTROPHILS % (AUTO) 63.3 %; PLT - PLATELET COUNT 369 10^3/uL (130-450); RED BLOOD COUNT 4.01 10^6/uL (4.20-5.40); RED CELL DISTRIBUTION WIDTH 13.7 % (12.0-15.0)
[2023-05-07 08:42] LABS: ALBUMIN 3.9 g/dL (3.2-5.5); BILIRUBIN,TOTAL 0.5 mg/dL (0.2-1.0); CALCIUM 9.3 mg/dL (8.5-10.3); CREATININE 0.7 mg/dL (0.6-1.3); POTASSIUM 4.2 mmol/L (3.5-4.5); TOTAL PROTEIN 7.9 g/dL (6.4-8.9)
== END 2023-05-07 08:16 | disposition home or self-care (01) ==
LOC: LAB 08:15
PROVIDERS: ATTEND Nurse Practitioner Family
DX: D64.9 Anemia, unspecified (principal); R79.9 Abnormal finding of blood chemistry, unspecified
CPT/HCPCS: 36415; 80053; 85025

== ENCOUNTER 2024-01-17 12:52 | Outpatient (CLI) | payer MEDICARE, OTHER ==
--- NOTE | 2024-01-18 09:24 | Mammography Report ---
BILATERAL DIGITAL SCREENING MAMMOGRAM 3D/2D: 01/17/2024 CLINICAL: Routine screening. Comparison is made to exams dated: 10/27/2022 mammogram, 01/27/2021 mammogram, 06/09/2018 mammogram, 03/04 mammogram, 11/01/2013 mammogram, and 05/24/2015 mammogram - [facility]. Both breasts are heterogeneously dense, which may obscure small masses (category c / 51-75% glandular tissue). No significant masses, calcifications, or other findings are seen in either breast. There has been no significant interval change. IMPRESSION: NEGATIVE There is no mammographic evidence of malignancy. A 1 year screening mammogram is recommended. Based on the Tyrer Cuzick model (a risk assessment model) the patient's lifetime risk is 3.0% and her 10 year risk is 0.0%. According to the ACR, ACS, and NCCN guidelines, an annual breast MRI exam marnie g with mammogram is recommended if the patient's lifetime risk is 20% or greater. This exam was interpreted at Station ID: [id number]. NOTE: For mammograms, a report in lay terms will be sent to the patient. Approximately 15% of breast malignancies will not be visualized mammographically. In the management of a palpable breast mass, a negative mammogram must not discourage biopsy of a clinically suspicious lesion. Electronically Signed By: Katie ortiz/ion:01/17/2024 16:40:59 letter sent: No_Letter ACR BI-RADS Category 1: Negative [id number] PARENCHYMAL PATTERN: (D) - The breast(s) demonstrate(s) heterogeneously dense fibroglandular fernie marmolejo. BI-RADS CATEGORY: (1) - 1 RECOMMENDATION: (ANNUAL) - Recommend routine annual screening mammography. [id number] 1 year screening LATERALITY: (B)
== END 2024-01-17 12:53 | disposition home or self-care (01) ==
LOC: DI 12:52
DX: Z12.31 Encounter for screening mammogram for malignant neoplasm of breast (principal); R92.333 Mammographic heterogeneous density, bilateral breasts

== ENCOUNTER 2024-01-17 12:55 | Outpatient (CLI) | payer MEDICARE, OTHER ==
--- NOTE | 2024-01-17 16:39 | DEXA Report ---
PROCEDURE: Dexa Spine and/or Hip INDICATIONS: POST MENOPAUSAL, THYROID NODULE TECHNIQUE: Dual energy x-ray absorptiometry (DXA) was performed on a [employer] System. Regions measur ed are the AP Spine, femoral neck, and if needed forearm. COMPARISON: None FINDINGS: Lumbar Spine: Bone Mineral Density: 0.991 g/cm/cm,T score: -1.6. Right Femoral Neck: Bone Mineral Density: 0.845 g/cm/cm, T score: -1.4. Right Hip: Bone Mineral Density: 0.744 g/cm/cm,T score: -2.1. (T score greater or equal to -1.0: NORMAL) (T score from -1.1 to -2.4: OSTEOPENIA) (T score less than or equal to -2.5 to: OSTEOPOROSIS) Impression: By WHO criteria, this patient has low bone density (osteopenia). Patients with diagnosis of osteoporosis or osteopenia should have regular bone mineral density assess ment. For those eligible for Medicare, routine testing is allowed once every 2 years. Testing frequ ency can be increased for patients who have rapidly progressing disease or for those who are receivin g medical therapy to restore bone mass. Reviewed by: Edward Ly MD on 01/17/2024 4:37 PM PDT Approved by: Edward Ly MD on 01/17/2024 4:37 PM PDT Station ID: [id number]
--- NOTE | 2024-01-18 08:27 | Ultrasound Report ---
PROCEDURE: Soft Tissue Head or Neck INDICATIONS: POST MENOPAUSAL, THYROID NODULE TECHNIQUE: Real-time scanning was performed of the thyroid gland, with image documentation. COMPARISON: Ultrasound head and neck, 01/05/2023. Fine-needle aspiration biopsy left thyroid nodule, . FINDINGS: Right: Thyroid lobe measures 3.6 x 0.9 x 0.9 cm, and is homogeneous in echotexture. Left: Thyroid lobe measures 5.0 x 3.2 x 2.9 cm, and is homogenous in echotexture. Isthmus: 0.5 cm thick. Nodule number: 1 Location: Right inferior. Size: 0.7 x 0.9 x 0.5 cm.; Previously 0.7 x 0.9 x 0.7 cm Composition: Cystic / almost completely cystic (0 points). Echogenicity: Anechoic (0 points). Shape: wider than tall (0 points). Margins: Smooth (0 points). Echogenic foci: None (0 points). Total points: 0 ACR TI-RADS category: 1 Nodule number: 2 Location: Location Size: 0.5 x 0.4 x 0.6 cm; previously 0.4 x 0.6 x 0.4 cm. Composition: Solid (2 points). Echogenicity: Isoechoic (1 point). Shape: wider than tall (0 points). Margins: Smooth (0 points). Echogenic foci: None (0 points). Total points: 3 ACR TI-RADS category: 3 Nodule number: 3 Location: Isthmus Size: 0.5 x 0.5 x 0.5 cm; previously 0.5 x 0.4 x 0.6 cm. Composition: Solid (2 points). Echogenicity: Hypoechoic (2 points). Shape: wider than tall (0 points). Margins: Smooth (0 points). Echogenic foci: None (0 points). Total points: 4 ACR TI-RADS category: 4 Nodule number: 4 Location: Left mid Size: 4.0 x 3.2 x 4.2 cm previously 4.5 x 2.7 x 3.7 cm. Composition: Solid (2 points). Echogenicity: Very hypoechoic (3 points). Shape: wider than tall (0 points). Margins: Smooth (0 points). Echogenic foci: None (0 points). Total points: 5 ACR TI-RADS category: 5 IMPRESSION: Stable thyroid nodules bilaterally. Nodule 4 meets the criteria for fine-needle aspirati on biopsy (previously biopsied on 03/23/2010 21). Please correlate with prior biopsy result. Continue follow-up ultrasound to document 5 years stability. ACR TI-RADS definitions and recommendations: TI-RADS 1 (benign): 0 points. FNA not needed. TI-RADS 2 (not suspicious): 2 points. FNA not needed. TI-RADS 3 (mildly suspicious): 3 points. "FNA if 2.5 cm or larger, follow up if 1.5 cm or larger (at 1, 3, and 5 years). TI-RADS 4 (moderately suspicious): 4-6 points. "FNA if 1.5 cm or larger, follow up if 1 cm or larger (at 1, 2, 3, and 5 years). TI-RADS 5 (highly suspicious): 7 points or more. "FNA if 1 cm or larger, follow up if 0.5 cm or larger (every year for 5 years). Reviewed by: Callie Stewart MD on 01/18/2024 8:26 AM PDT Approved by: Callie Stewart MD on 01/18/2024 8:26 AM PDT Station ID: [id number]
== END 2024-01-17 12:56 | disposition home or self-care (01) ==
LOC: DI 12:55
PROVIDERS: ATTEND Nurse Practitioner Family
DX: E04.2 Nontoxic multinodular goiter (principal); M85.89 Other specified disorders of bone density and structure, multiple sites; Z78.0 Asymptomatic menopausal state

== ENCOUNTER 2024-05-26 08:45 | Outpatient (CLI) | payer MEDICARE, OTHER ==
[2024-05-26 08:54] LABS: BASOPHILS % (AUTO) 0.3 %; EOSINOPHILS # (AUTO) 0.2 10^3/uL (0.0-0.7); EOSINOPHILS % (AUTO) 1.9 %; HCT - HEMATOCRIT 39.2 % (37.0-47.0); HGB - HEMOGLOBIN 12.6 g/dL (12.0-16.0); LYMPHOCYTES # (AUTO) 1.9 10^3/uL (1.5-3.5); LYMPHOCYTES % (AUTO) 21.1 %; MEAN CORPUSCULAR HEMOGLOBIN 31.2 pg (27.0-31.0); MEAN CORPUSCULAR HGB CONC 32.1 g/dL (32.0-36.0); MEAN PLATELET VOLUME 8.5 fL (7.9-10.8); MONOCYTES # (AUTO) 0.6 10^3/uL (0.0-1.0); MONOCYTES % (AUTO) 6.9 %; NEUTROPHILS # (AUTO) 6.4 10^3/uL (1.5-6.6); NEUTROPHILS % (AUTO) 69.6 %; PLT - PLATELET COUNT 388 10^3/uL (130-450); RED BLOOD COUNT 4.04 10^6/uL (4.20-5.40); RED CELL DISTRIBUTION WIDTH 13.2 % (12.0-15.0); WHITE BLOOD COUNT 9.1 x10^3/uL (4.8-10.8)
[2024-05-26 09:06] LABS: ALBUMIN 3.9 g/dL (3.2-5.5); BILIRUBIN,TOTAL 0.4 mg/dL (0.2-1.0); CALCIUM 9.4 mg/dL (8.5-10.3); CREATININE 0.6 mg/dL (0.6-1.3); POTASSIUM 3.7 mmol/L (3.5-4.5)
[2024-05-26 09:22] LABS: THYROID STIMULATING HORMONE 1.89 uIU/mL (0.34-5.60)
== END 2024-05-26 08:46 | disposition home or self-care (01) ==
LOC: LAB 08:45
PROVIDERS: ATTEND Nurse Practitioner Family
DX: I10 Essential (primary) hypertension (principal); E03.9 Hypothyroidism, unspecified
CPT/HCPCS: 36415; 80053; 84443; 85025

== ENCOUNTER 2024-08-24 12:24 | Inpatient (IN) ==
--- NOTE | 2024-08-24 12:29 | ED Physician Documentation ---
History of Present Illness Stated complaint Stated Complaint: DIARRHEA,HIGH HR Chief complaint Chief Complaint: Cardiac Additonal information Additional information: 79-year-old female with history of hypothyroidism, high cholesterol, hypertension presents with rapid heart rate in the setting of diarrhea. She was seen in clinic today with about 2 weeks of weakness, nausea, along with a few days abdominal cramping, vomiting and diarrhea (2-3x per day) without blood. She was found to be in atrial fibrillation with RVR to 150s and sent here for further evaluation. She confirms here no chest pain, lightheadedness or syncope, though she feels fatigued. She denies history of afibrillation. No anticoagulation. No leg swelling leg pain. No recent antibiotics or travel. She denies fevers or chills. No shortness of breath. She is here with close friend. She lives alone and is usually very independent. Review of Systems ROS Constitutional: no fever, no chills Eyes: no visual disturbance, no discharge Ears, Nose, Mouth, Throat: no rhinorrhea, no sore throat Cardiovascular: no chest pain, +palpitations Respiratory: no cough, no shortness of breath Gastrointestinal: +(resolved) abdominal pain, vomiting, diarrhea Genitourinary: no dysuria, no hematuria Musculoskeletal: no back pain, no neck stiffness Skin: no rash, no wound Neurological: no focal weakness, no focal numbness Meds/Allgy Home Medications Ambulatory Orders Medication Instructions Recorded Confirmed levothyroxine 25 mcg tablet 50 mcg PO QDAC 04/03/13 08/24/24 cholecalciferol (vitamin D3) 50 1,000 unit PO DAILY 05/09/15 08/24/24 mcg (2,000 unit) capsule (Vitamin D3) losartan 100 mg tablet 100 mg PO DAILY 06/15/18 08/24/24 amlodipine 10 mg tablet (Norvasc) 10 mg PO DAILY 01/23/24 08/24/24 ondansetron 4 mg disintegrating 4 mg PO Q8H PRN nausea and 08/24/24 08/24/24 tablet vomiting 7 days #21 tabs Allergies Allergies Allergy/AdvReac Type Severity Reaction Status Date / Time No Known Drug Allergies Allergy Verified 08/24/24 12:36 [facility] Medical History Medical History (Updated 08/24/24 @ 15:34 by Moses Baxter MD) Hypothyroidism HTN (hypertension) Surgical History Surgical History (Updated 08/24/24 @ 12:35 by Anupama Jamison RN, BSN) Hx of hysterectomy Social History Social History Smoking Status: Never smoker Do you dip or chew tobacco?: No Do you vape?: No Relationship: Do you feel safe in your home environment?: Yes Suffered physical, verbal, emotional, or financial abuse?: No History of Abuse: No POLST Patient has POLST: No Exam Exam Const: no acute distress, non toxic appearing; calm, conversant, pleasant Eyes: PERRLA, EOMI ENT: mucous membranes dry Neck: supple, non-tender Resp: no respiratory distress, clear to auscultation bilaterally Card: Irregularly irregular tachycardia currently 160s, no murmurs Abd: non tender diffusely, no rigidity or rebound or guarding Back: no T or L spine tenderness, no CVA tenderness bilaterally Extrem: no deformities, no swelling bilateral lower extremities, 2+ distal pulses all extremities 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, 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, grossly intact sensation and strength all extremities Skin: no rash, warm and dry Results Vitals Vitals: Vital Signs - 24 hr 08/24/24 12:30 08/24/24 12:59 08/24/24 13:06 Temperature 36.2 C L Pulse Rate 160 H 160 H 156 H Respiratory Rate 18 16 16 Blood Pressure 101/78 O2 Saturation 93 91 L 93 Oxygen Delivery Method O2 Source Room air Room air Room air Oxygen Flow Rate If not protocol: Oxygen Flow, liters/minute Pain Intensity 0 0 0 08/24/24 13:30 08/24/24 13:35 08/24/24 13:43 Temperature Pulse Rate 153 H 142 H 140 H Respiratory Rate 20 20 20 Blood Pressure 119/70 124/80 104/77 O2 Saturation 97 97 96 Oxygen Delivery Method O2 Source Room air Room air Room air Oxygen Flow Rate If not protocol: Oxygen Flow, liters/minute Pain Intensity 0 0 0 08/24/24 14:00 08/24/24 14:15 08/24/24 14:17 Temperature Pulse Rate 101 H 147 H Respiratory Rate 20 20 Blood Pressure 115/59 L 139/82 H O2 Saturation 94 93 Oxygen Delivery Method Nasal Cannula O2 Source Room air Room air Oxygen Flow Rate 2 If not protocol: Oxygen Flow, liters/minute Pain Intensity 0 0 08/24/24 14:28 08/24/24 14:30 08/24/24 14:39 Temperature Pulse Rate 123 H 146 H Respiratory Rate 20 20 Blood Pressure 133/70 H 123/88 O2 Saturation 87 L 90 L Oxygen Delivery Method Nasal Cannula O2 Source Room air Nasal cannula Oxygen Flow Rate 4 If not protocol: Oxygen Flow, liters/minute 4 Pain Intensity 0 0 08/24/24 14:49 08/24/24 15:00 Temperature Pulse Rate 141 H 140 H Respiratory Rate 20 20 Blood Pressure 124/88 109/78 O2 Saturation 93 93 Oxygen Delivery Method O2 Source Nasal cannula Nasal cannula Oxygen Flow Rate If not protocol: Oxygen Flow, liters/minute 4 4 Pain Intensity 0 0 Oxygen O2 Source Nasal cannula Oxygen Flow Rate 4 Labs Labs: Laboratory Tests 08/24/24 08/24/24 12:55 12:57 WBC 11.1 H RBC 4.01 L Hgb 12.4 Hct 38.5 MCV 96.0 MCH 30.9 MCHC 32.2 RDW 14.6 Plt Count 415 MPV 8.7 Neut # (Auto) 9.2 H Lymph # (Auto) 1.2 L [place] # (Auto) 0.6 Eos # (Auto) 0.0 Baso # (Auto) 0.0 Absolute Nucleated RBC 0.00 Nucleated RBC % 0.0 Sodium 137 Potassium 3.4 L Chloride 99 L Carbon Dioxide 25 Anion Gap 13.0 BUN 26 H Creatinine 1.2 Estimated GFR (MDRD) 43 L Glucose 138 H Calcium 9.1 Magnesium 1.7 Total Bilirubin 0.7 AST 18 ALT 25 Alkaline Phosphatase 70 B-Natriuretic Peptide 851 H Total Protein 6.9 Albumin 3.9 Globulin 3.0 Albumin/Globulin Ratio 1.3 TSH 2.20 Nasal Influenza B PCR NOT DETECTED Nasal Influenza A PCR NOT DETECTED Nasal RSV (PCR) NOT DETECTED Nasal SARS-CoV-2 (PCR) NOT DETECTED PD Medical Decision Making ED course ED course: This patients presentation is most suggestive of new onset atrial fibrillation of unclear duration in a currently well-perfused, comfortable, not dyspneic, afebrile patient who is overall stable despite fast rate. I have considered broad differential including not limited to diarrhea leading to intravascular volume depletion in the setting of gastroenteritis, electrolyte derangements, ROSSY, thyroid derangement, pneumonia, among others. We are obtaining EKG, CBC, CMP, TSH, magnesium, chest x-ray, viral swab. I am giving fluids and will closely reassess. Patient does not appear fluid overloaded but rather intravascular volume depleted in the setting of her diarrhea. Note she has a benign abdomen, without recent antibiotic exposure or travel, and notes only a few episodes of diarrhea per day, arguing currently against Cdiff. EKG shows atrial fibrillation with rapid ventircular response, no acute ischemia or immediately concerning interval prolongation. Giving 10mg IV diltiazem along with fluids. Labs: CBC with mild leukocytosis, neutrophilic, no anemia or thrombocytopenia. CMP with borderline hypokalemia, probable prerenal ROSSY, with creatinine increased from roughly 0.6 to 1.2, no LFT elevation. Magnesium within normal limits however less than 2; giving 2g mag sulfate IV. BNP is elevated but clinically patient appears dry, and I do think fluid bolus reasonable in setting of recent vomiting/diarrhea. TSH WNL. I agree with radiology reads of imaging on my independent review of imaging. CXR: "FINDINGS / IMPRESSION: [id number] bibasilar consolidations commonly representing a combination of pleural effusions, atelectatic changes, pneumonia or other process. Vpuq-hp-gwugyqwa bilateral perihilar and lower lobe peribronchial thickening. Bronchitis, viral infection, bronchopneumonia, aspiration pneumonitis or other process should be considered. Follow-up suggested. Mildly enlarged cardiopericardial silhouette. Mildly prominent anil, pulmonary vessels and/or hilar lymph nodes. No pneumothorax. Follow up suggested. If symptoms persist or worsen, CT chest could be performed. Reviewed by: Stnoe Romero MD on 08/24/2024 1:36 PM PST" Adding bcx x2, ceftriaxone and doxycycline. CAP could also contribute to this process. I will hold fluids after 1st liter given potential pulmonary volume overload and elevated BNP. Giving 20mg IV diltiazem. HR improving to 130s; note pt on 2L NC now but otherwise stable. I spoke with Dr. Baxter at 1450; she kindly agrees to admission. Adding Eliquis, Echo, Diltiazem gtt. Currently, PNA could be driving new onset afib with RVR, with both components of pulmonary edema/CHF and gross total body volume depletion possible. Patient appears stable, comfortable with improving HR on multiple assessments. Note UA pending. Patient being admitted in stable condition. Discharge Plan Discharge Patient Disposition: 66 [facility] DC/Xfer Condition: Stable Clinical Impression: Atrial fibrillation with rapid ventricular response Prescriptions: No Action levothyroxine 25 MCG tablet 50 mcg PO QDAC cholecalciferol (vitamin D3) [Vitamin D3] 2,000 UNIT capsule 1,000 unit PO DAILY losartan 100 MG tablet 100 mg PO DAILY amlodipine [Norvasc] 10 MG tablet 10 mg PO DAILY Patient Comments: take 1 tablet by mouth once daily for high blood pressure ondansetron 4 mg tablet,disintegrating 4 mg PO Q8H PRN (Reason: nausea and vomiting) 7 Days Qty: 21 0RF Rx Instructions: stay well hydrated Print Language: Spanish
[2024-08-24 13:04] LABS: BASOPHILS % (AUTO) 0.2 %; EOSINOPHILS % (AUTO) 0.1 %; HCT - HEMATOCRIT 38.5 % (37.0-47.0); HGB - HEMOGLOBIN 12.4 g/dL (12.0-16.0); LYMPHOCYTES # (AUTO) 1.2 10^3/uL (1.5-3.5); MEAN CORPUSCULAR HEMOGLOBIN 30.9 pg (27.0-31.0); MEAN CORPUSCULAR HGB CONC 32.2 g/dL (32.0-36.0); MEAN PLATELET VOLUME 8.7 fL (7.9-10.8); MONOCYTES # (AUTO) 0.6 10^3/uL (0.0-1.0); MONOCYTES % (AUTO) 5.7 %; NEUTROPHILS # (AUTO) 9.2 10^3/uL (1.5-6.6); NEUTROPHILS % (AUTO) 82.6 %; PLT - PLATELET COUNT 415 10^3/uL (130-450); RED BLOOD COUNT 4.01 10^6/uL (4.20-5.40); RED CELL DISTRIBUTION WIDTH 14.6 % (12.0-15.0); WHITE BLOOD COUNT 11.1 x10^3/uL (4.8-10.8)
[2024-08-24] MEDS: SODIUM CHLORIDE 0.9% 500 ML IV STA ×2 (13:13→13:14)
[2024-08-24 13:18] LABS: ALBUMIN 3.9 g/dL (3.2-5.5); ALBUMIN/GLOBULIN RATIO 1.3 (1.0-2.2); BILIRUBIN,TOTAL 0.7 mg/dL (0.2-1.0); CALCIUM 9.1 mg/dL (8.5-10.3); CREATININE 1.2 mg/dL (0.6-1.3); MAGNESIUM 1.7 mg/dL (1.7-2.3); POTASSIUM 3.4 mmol/L (3.5-4.5); TOTAL PROTEIN 6.9 g/dL (6.4-8.9)
[2024-08-24 13:31] LABS: THYROID STIMULATING HORMONE 2.2 uIU/mL (0.34-5.60)
[2024-08-24] MEDS: diltiaZEM INJ 5 MG/ML VIAL IVP STA ×2 (13:35→14:22)
[2024-08-24] MEDS: MAGNESIUM SULFATE 2 GRAM 2 GM/50 ML BAG IV ONE (13:35)
--- NOTE | 2024-08-24 13:37 | XRAY Report ---
PROCEDURE: XR Chest 1V INDICATIONS: Atrial fibrillation TECHNIQUE: One view of the chest was acquired. COMPARISON: None. FINDINGS / IMPRESSION: [id number] bibasilar consolidations commonly representing a combination of pleural effusions, a telectatic changes, pneumonia or other process. [id number]-cx-raxgrynr bilateral perihilar and lower lobe peribronchial thickening. Bronchitis, viral infe ction, bronchopneumonia, aspiration pneumonitis or other process should be considered. Follow-up elisa [place]. Mildly enlarged cardiopericardial silhouette. Mildly prominent anil, pulmonary vessels and/or hilar lymph nodes. No pneumothorax. Follow up suggested. If symptoms persist or worsen, CT chest could be performed. Reviewed by: Stone Romero MD on 08/24/2024 1:36 PM PST Approved by: Stone Romero MD on 08/24/2024 1:36 PM PST Station ID: [id number]
[2024-08-24 13:52] LABS: INFLUENZA A- RESP PCR PANEL NOT DETECTED; INFLUENZA B - RESP PCR PANEL NOT DETECTED; RSV- RESP PCR PANEL NOT DETECTED; SARS-CoV-2 -RESP PCR PANEL NOT DETECTED
[2024-08-24] MEDS: DOXYCYCLINE 100 MG TABLET PO STA (14:23)
[2024-08-24] MEDS: APIXABAN 5 MG TABLET PO STA (15:04)
[2024-08-24] MEDS: diltiaZEM INJ 125 MG in DEXTROSE 5% 100 ML IV STA (15:24)
--- NOTE | 2024-08-24 15:26 | HISTORY & PHYSICAL EXAMINATION ---
Chief Complaint Chief Complaint Chief Complaint: Feeling "unwell" History of Present Illness Admitted From Admitted From:: Home History Obtained From Records Reviewed: Yes History obtained from: Patient, and patient's friend at bedside, Diane Exam Limitations: None History of Present Illness HPI Comment/Other: Patient is a 79-year-old female with history of hypertension, hypothyroidism who presents after few weeks of feeling unwell. Approximately 2 weeks ago, she had 4 to 5 days of diarrhea, with increased bowel movements daily. At that time, she also adams cramping abdominal pain. This resolved, but she still continued to feel unwell. As such, she said to go to a walk-in clinic todayhere, she endorses feeling not well, tired, and having no appetite. She was found to be in new onset atrial fibrillation with RVR, and was advised to come to the emergency room. In the ED, her heart rate was as high as 160. She was given 2 pushes of Cardizem, with improvement to 1 20-1 40. She has been normal to hypertensive. She did receive some IV fluids, which resulted in her oxygen saturations going from 97% down to 87%; she is requiring about 4 L of oxygen at this time. She has been afebrile. Lab work was reviewed which showed a mild leukocytosis of 11.1. Potassium was mildly low at 3.4. Her BNP was elevated at 851. Chest x- ray showed mild to moderate bibasilar consolidations. Enlarged cardiopericardial silhouette was also noted. She states that this time, she is not feeling any palpitations, does not feel like her heart is racing. She denies any fevers, chills. She does have a mild dry cough, which she attributes to her dry mouth. She has no sputum production. Her diarrhea has completely resolved. She has no dysuria, urinary frequency, urinary incontinence. Meds/Allgy Home Medications Ambulatory Orders Medication Instructions Recorded Confirmed levothyroxine 25 mcg tablet 50 mcg PO QDAC 04/03/13 08/24/24 cholecalciferol (vitamin D3) 50 1,000 unit PO DAILY 05/09/15 08/24/24 mcg (2,000 unit) capsule (Vitamin D3) losartan 100 mg tablet 100 mg PO DAILY 06/15/18 08/24/24 amlodipine 10 mg tablet (Norvasc) 10 mg PO DAILY 01/23/24 08/24/24 ondansetron 4 mg disintegrating 4 mg PO Q8H PRN nausea and 08/24/24 08/24/24 tablet vomiting 7 days #21 tabs Allergies Allergies Allergy/AdvReac Type Severity Reaction Status Date / Time No Known Drug Allergies Allergy Verified 08/24/24 12:36 PFSH Medical History Medical History (Updated 08/24/24 @ 15:34 by Moses Baxter MD) Hypothyroidism HTN (hypertension) Surgical History Surgical History (Updated 08/24/24 @ 12:35 by Anupama Jamison, RN, BSN) Hx of hysterectomy Social History Social History Smoking Status: Never smoker Do you dip or chew tobacco?: No Do you vape?: No Relationship: Do you feel safe in your home environment?: Yes Suffered physical, verbal, emotional, or financial abuse?: No History of Abuse: No POLST Patient has POLST: No Review of Systems Constitutional Reports: Fatigue, Malaise, Weakness and Poor appetite; Denies: Fever, Chills, Diaphoresis or Night sweats Eyes Denies: Pain, Irritation, Amaurosis or Blurry vision Ears, nose, mouth, and throat Denies: Ear pain, Ear discharge, Hearing loss, Hearing aids or Neck pain Cardiovascular Reports: Irregular heart rate and shortness of breath with exertion; Denies: chest pain, palpitations, edema, swelling of feet/ankles or Syncope Respiratory Reports: Shortness of breath Gastrointestinal Reports: Poor appetite and Diarrhea; Denies: Abdominal pain, Abdominal distention, Nausea or Vomiting Genitourinary Denies: Painful urination, Urinary frequency, Urinary urgency, Nocturia, Urinary incontinence, Blood in urine or Difficulty voiding Musculoskeletal Denies: Back pain, Neck pain, Extremity pain, Extremity swelling, Gout or Joint pain Integumentary/Breast Denies: Rash, Itching, Dryness, Redness, Skin pain, Skin tenderness, Skin swelling or Sores Neurological Reports: Pre-existing deficit; Denies: Headache, General weakness, Focal weakness, Weakness in extremities or Numbness in extremities Psychiatric Denies: Depression, Anxiety, Mood swings or Panic attacks Endocrine Reports: Fatigue; Denies: Excessive urination, Excessive thirst or Polyphagia Prior Level of Functionality: Lives alone, independent of ADLs. Exam Constitutional normal general appearance and no apparent distress HENMT normocephalic, head/scalp atraumatic and hearing grossly normal bilaterally Eyes PERRL, EOMs intact bilaterally, conjunctivae normal, no scleral icterus and no papilledema Neck/C-Spine visual inspection normal and trachea midline Chest inspection of chest normal and palpation of chest normal Respiratory breath sounds equal bilaterally, normal respiratory effort, clear to auscultation bilaterally, no wheezes, no rales and no retractions Cardiovascular heart rate abnormal (tachycardic), rhythm abnormal (irregular), no rub, no murmur and no edema Gastrointestinal abdomen normal to inspection, abdomen soft to palpation, nontender to palpation and nondistended Genitourinary no CVA tenderness and bladder normal to palpation Extremities normal to inspection, normal to palpation, no tenderness and full ROM Neurology no movement abnormality noted, no focal motor deficit noted and no sensory deficits noted Psychiatry mental status grossly normal, oriented x3, thought process normal, cooperative and affect normal Skin skin color normal, no rash and no lesions Conclusion/Plan Problem List (1) Atrial fibrillation with rapid ventricular response: Plan: Patient presents with new onset atrial fibrillation with RVR. Per patient, she has no cardiac history. Chest x-ray does show enlarged cardiac silhouette, bilateral pleural effusions. proBNP elevated at 800. Echo ordered stat, pending. Hold off on diltiazem drip until this results. Continue IV metoprolol 5 mg 3 times daily. Will also order oral metoprolol as well. [id number] score of 4. Continue Eliquis 5 mg twice daily at this time. (2) Leukocytosis: Plan: Patient diarrhea 2 weeks ago, which is now completely resolved. No cough, no sputum production, no fevers, no chills, no urinary symptoms. Did receive a dose of Rocephin and doxycycline in the ED, not continued. Will monitor off antibiotics. Qualifiers: Leukocytosis type: unspecified Qualified Code(s): D72.829 - Elevated white blood cell count, unspecified (3) Diarrhea: Plan: Resolved, decreased fluid intake could have led to volume depletion which may have resulted in the above A-fib with RVR. Continue to monitor. Qualifiers: Diarrhea type: presumed infectious Qualified Code(s): R19.7 - Diarrhea, unspecified (4) HTN (hypertension): Plan: Patient on amlodipine and losartan at home. Hold both medications as patient will likely require high doses of rate control which could lead to lower blood pressures. Qualifiers: Hypertension type: unspecified Qualified Code(s): I10 - Essential (primary) hypertension (5) Hypothyroidism: Plan: TSH, T4 ordered; patient takes Synthroid at home. If higher doses than what's required, then this could be triggering the above episode as well. Qualifiers: Hypothyroidism type: unspecified Qualified Code(s): E03.9 - Hypothyroidism, unspecified Lab Results Lab results reviewed: Yes 08/24/24 12:55 08/24/24 12:55 Diagnostic Imaging Results Diagnostic Imaging Results: positive Final report reviewed EKG Results EKG Interpreted Independently: Yes EKG Findings: Atrial fibrillation with RVR. Core Measures Anticipated LOS I expect patient to be DC'd or transferred within 96 hours.: Yes DVT/VTE - Prophylaxis VTE/DVT Device ordered at admit?: Yes VTE/DVT Prophylaxis med ordered at admit?: Yes Stroke - Rehab Assessment Rehab services assessment to be ordered?: No Not Ordered - Medical Reason: Not indicated AMI - Statin at Admit Aspirin Prescribed on Admit: No Not Ordered - Medical Reason: Not indicated
[2024-08-24] MEDS: cefTRIAXone 1 GM in SODIUM CHLORIDE 0.9% MINIBAG 100 ML IV STA (15:46)
[2024-08-24] MEDS ORDERED: ACETAMINOPHEN 325 MG TABLET PO PRN (16:02)
[2024-08-24] MEDS ORDERED: HYDROcod/ACETAM 5/325 MG TABLET PO PRN (16:02)
[2024-08-24] MEDS ORDERED: SODIUM CHLORIDE FLUSH 0.9% 10 ML SYRINGE IVP PRN (16:02)
[2024-08-24] MEDS: METOPROLOL 5 MG/5 ML VIAL IVP STA (16:35)
[2024-08-24] MEDS: SODIUM CHLORIDE FLUSH 0.9% 10 ML SYRINGE IVP SCH (16:38)
[2024-08-24] MEDS ORDERED: SODIUM CHLORIDE FLUSH 0.9% 10 ML SYRINGE IVP SCH (17:00)
[2024-08-24] MEDS: ONDANSETRON 4 MG/2 ML VIAL IVP PRN (17:28)
[2024-08-24] MEDS: POTASSIUM CHLOR 10 MEQ/100 ML 10 MEQ/100 ML BAG IV SCH (17:55)
[2024-08-24] MEDS ORDERED: METOPROLOL TARTRATE 25 MG TABLET PO SCH (18:00)
--- NOTE | 2024-08-24 18:36 | PHARMACY PROGRESS NOTE ---
Best Possible Medication History Admit Date and Time: 08/24/24 [id number] Home Medications Medication Instructions Recorded Confirmed Type cholecalciferol (vitamin D3) 50 1,000 unit PO DAILY 05/09/15 08/24/24 History mcg (2,000 unit) capsule (Vitamin D3) losartan 100 mg tablet 100 mg PO DAILY 06/15/18 08/24/24 History amlodipine 10 mg tablet (Norvasc) 10 mg PO DAILY 01/23/24 08/24/24 History levothyroxine 50 mcg tablet 50 mcg PO QDAC 08/24/24 08/24/24 History ondansetron 4 mg disintegrating 4 mg PO Q8H PRN nausea and 08/24/24 08/24/24 Rx tablet vomiting 7 days #21 tabs Processed by: Nursing Medications reviewed in ED?: No Medication History completed: Yes Secondary Source(s): Pharmacy records and Insurance records [facility] Statement: As the person ultimately responsible for medication therapy, providers are able to order a medication from an existing home medication list in [facility] via the "Reconcile Routine" prior to Confirmation of that medication by customer support consultant. Such practice is discouraged except when the physician, in their clinical judgment, deems that a medical need exists for a medication without regard to previous use.
[2024-08-24] MEDS: APIXABAN 5 MG TABLET PO SCH (21:11)
[2024-08-24] MEDS: METOPROLOL 5 MG/5 ML VIAL IVP SCH (22:01)
--- NOTE | 2024-08-25 00:10 | PROVIDER PROGRESS NOTE ---
Field Return Repairer Note Field Return Repairer Note Field Return Repairer Note: RN paged " Pt admitted this afternoon for New Onset A-fib/RVR (HR 160s). Pt was given Diltiazem 10mg IV in ED x2 doses, HR down to 140s. Pt has Metoprolol 5mg q6hrs ordered. 2200 dose not given because BP was 93/79. 2300 BP was 90/67, HR 135. With activity, HR in the 130s-1l0w 150s. Can you please order Diltiazem to help lower HR? Thank you." noted hypotension while atrial fibrillation with RVR. metoprolol and diltiazem are both not good options. noted patient had completed amiodarone gtt ordered. she is on Eliquis. Will proceed with amiodarone in light of hypotension. will iv fluid 250ml bolus to bolster bp. will add x1 digoxin to help with rate control. continue monitor on tele. Tawanna Wallace
[2024-08-25] MEDS: SODIUM CHLORIDE 0.9% 250 ML IV ONE (00:20)
[2024-08-25] MEDS: DIGOXIN 500 MCG/2 ML AMP IVP ONE (00:20)
[2024-08-25 00:40] LABS: MAGNESIUM 2.2 mg/dL (1.7-2.3); POTASSIUM 4.6 mmol/L (3.5-4.5)
[2024-08-25 00:46] LABS: PHOSPHORUS 4.1 mg/dL (2.5-5.0)
[2024-08-25] MEDS: AMIODARONE 150 MG/100 ML 100 ML IV ONE (00:46)
[2024-08-25 04:29] LABS: HCT - HEMATOCRIT 34.1 % (37.0-47.0); HGB - HEMOGLOBIN 10.9 g/dL (12.0-16.0); MEAN CORPUSCULAR HEMOGLOBIN 31.1 pg (27.0-31.0); MEAN CORPUSCULAR VOLUME 97.4 fL (81.0-99.0); MEAN PLATELET VOLUME 8.8 fL (7.9-10.8); RED BLOOD COUNT 3.5 10^6/uL (4.20-5.40); RED CELL DISTRIBUTION WIDTH 14.9 % (12.0-15.0); WHITE BLOOD COUNT 10.7 x10^3/uL (4.8-10.8)
[2024-08-25 05:00] LABS: CALCIUM, IONIZED 1.03 mmol/L (1.15-1.33); VBG PH 7.426 (7.31-7.41)
[2024-08-25 05:10] LABS: ALBUMIN 3.3 g/dL (3.2-5.5); ALBUMIN/GLOBULIN RATIO 1.2 (1.0-2.2); BILIRUBIN,TOTAL 0.4 mg/dL (0.2-1.0); CALCIUM 8.1 mg/dL (8.5-10.3); CREATININE 1.3 mg/dL (0.6-1.3); MAGNESIUM 2.2 mg/dL (1.7-2.3); POTASSIUM 4.3 mmol/L (3.5-4.5); TOTAL PROTEIN 6.1 g/dL (6.4-8.9)
[2024-08-25] MEDS ORDERED: CALCIUM CHLORIDE 1,000 MG in SODIUM CHLORIDE 0.9% 50 ML IV ONE (05:16)
[2024-08-25] MEDS: CALCIUM GLUC 1,000MG/50ML-NACL 1,000 MG/50 ML BAG IV ONE (06:33)
[2024-08-25 06:44] LABS: BILIRUBIN,URINE NEGATIVE (NEGATIVE); GLUCOSE, URINE (UA) NEGATIVE (NEGATIVE); KETONES,URINE (UA) NEGATIVE (NEGATIVE); LEUKOCYTE ESTERASE, URINE SMALL (NEGATIVE); NITRITE,URINE NEGATIVE (NEGATIVE); OCCULT BLOOD,URINE MODERATE (NEGATIVE); PH,URINE 5.5 PH (5.0-7.5); PROTEIN,URINE 30 mg/dL (NEGATIVE); UROBILINOGEN,URINE 0.2 (NORMAL) E.U./dL (NORMAL)
[2024-08-25 06:50] LABS: CLARITY,URINE HAZY (CLEAR)
[2024-08-25] MEDS: METOPROLOL 5 MG/5 ML VIAL IVP SCH (06:52)
[2024-08-25 06:53] LABS: BACTERIA,URINE Few /HPF (None Seen); EPITHELIAL CELLS,UR FEW Transitional /HPF (<= Few); RBC,URINE 0-5 /HPF (0-5); SQUAMOUS EPITHELIAL CELL,UR MOD Squamous (<= Few)
[2024-08-25] MEDS: LEVOTHYROXINE 25 MCG TABLET PO SCH (07:03)
[2024-08-25] MEDS: AMIODARONE 360 MG/200 ML 200 ML IV ONE (07:27)
[2024-08-25] MEDS: FUROSEMIDE 20 MG/2 ML VIAL IVP STA (08:58)
[2024-08-25] MEDS: CHOLECALCIFEROL 25 MCG TABLET PO SCH (08:58)
--- NOTE | 2024-08-25 09:06 | PROVIDER PROGRESS NOTE ---
Subjective Subjective Subjective: Today, patient states that she feels better than yesterday. She states that her fatigue is improving. She is eating and drinking well. She does not feel short of breath. She has no cough, no fevers, no chills. She has not noticed any lower extremity swelling. She is still not feeling her heart rate racing, nor is feeling any palpitations. Current Medications Current Medications Current Medications: Current Medications Generic Name Dose Route Start Last Admin Trade Name Freq PRN Reason Stop Dose Admin Acetaminophen 650 mg 08/24/24 16:02 Acetaminophen 325 Mg Tablet PO Q4HR PRN Pain 1 to 4, or Fever Hydrocodone Bitart/Acetaminophen 1 tab 08/24/24 16:02 Hydrocod/Acetam 5/325 Mg Tablet PO Q4HR PRN Pain 5 to 7 Apixaban 5 mg 08/24/24 21:00 08/25/24 08:58 Apixaban 5 Mg Tablet PO 5 mg BID AURE Administration Cholecalciferol 25 mcg 08/25/24 09:00 08/25/24 08:58 Cholecalciferol 25 Mcg Tablet PO 25 mcg DAILY AURE Administration Amiodarone HCl/Dextrose 200 mls @ 33.333 mls/hr 08/25/24 07:06 08/25/24 07:27 Nexterone 360 Mg/200 Ml IV 08/25/24 13:05 33.33 mls/hr ONCE ONE Administration Levothyroxine Sodium 50 mcg 08/25/24 07:00 08/25/24 07:03 Levothyroxine 25 Mcg Tablet PO 50 mcg QDAC AURE Administration Metoprolol Tartrate 5 mg 08/25/24 06:00 08/25/24 06:52 Metoprolol 5 Mg/5 Ml Vial IVP Not Given TID AURE Ondansetron HCl 4 mg 08/24/24 17:22 08/24/24 17:28 Ondansetron 4 Mg/2 Ml Vial IVP 4 mg Q6HR PRN Administration Nausea / Vomiting Ondansetron HCl 4 mg 08/24/24 17:22 Ondansetron Odt 4 Mg Tablet TL Q6HR PRN Nausea / Vomiting Sodium Chloride 10 ml 08/24/24 16:02 Sodium Chloride Flush 0.9% 10 Ml Syringe IVP PRN PRN NEEDED PER PROVIDER ORDERS Sodium Chloride 10 ml 08/24/24 17:00 08/25/24 08:59 Sodium Chloride Flush 0.9% 10 Ml Syringe IVP 10 ml 0100,0900,1700 AURE Administration Objective Vital Signs/Intake & Output Reviewed Vital Signs: Yes Vital Signs: Vital Signs x48h Temp Pulse Pulse Resp BP BP Pulse Ox 08/25/24 09:00 125 H 30 H 110/51 L 95 08/25/24 08:25 98.3 F 08/25/24 08:00 132 H 28 H 144/98 H 94 08/25/24 07:00 142 H 29 H 88/64 L 92 08/25/24 06:52 139 H 91/69 08/25/24 06:00 138 H 30 H 91/69 92 08/25/24 05:00 120 H 22 92/71 92 08/25/24 05:00 124 H 27 H 92/71 92 08/25/24 04:00 134 H 29 H 91/51 L 92 08/25/24 03:00 98.6 F 122 H 26 H 92/62 92 08/25/24 02:00 139 H 27 H 114/68 92 08/25/24 01:30 126 H 119/58 L 08/25/24 01:15 117 H 107/71 O2 Flow Rate 08/25/24 09:00 4 08/25/24 08:25 08/25/24 08:00 4 08/25/24 07:00 4 08/25/24 06:52 08/25/24 06:00 4 08/25/24 05:00 4 08/25/24 05:00 4 08/25/24 04:00 4 08/25/24 03:00 4 08/25/24 02:00 4 08/25/24 01:30 08/25/24 01:15 Intake & Output: Intake & Output 08/23/24 08/24/24 08/25/24 08/26/24 05:59 05:59 05:59 05:59 Intake Total 2047 300 / 300 Output Total 0 / 0 200 / 200 Balance 2047 100 / 100 Weight (kg) 56 kg 57 kg Objective General Appearance: positive No acute distress, Alert and Anxious Eyes Bilateral: positive Normal inspection, PERRL and EOMI ENT: positive ENT inspection nml, Pharynx nml and No signs of dehydration Neck: positive Nml inspection, Thyroid nml, No JVD and Trachea midline Respiratory: positive Chest non-tender and Rales (bibasilar crackles noted); negative No respiratory distress (mild respiratory distress) Cardiovascular: positive Irregularly irregular and Tachycardia Abdomen: positive Non-tender; negative Guarding, Rebound, Hepatomegaly, Splenomegaly or Mass Back: positive Nml inspection; negative CVA tenderness (R) or CVA tenderness (L) Skin: positive Color nml, No rash and Dry Extremities: positive Non-tender, Full ROM and No pedal edema Neurologic/Psychiatric: positive Oriented x3, Sensation nml and Mood/affect nml Lab Results 08/25/24 04:14 08/25/24 04:14 Other Labs: Lab Results x24hrs 08/25/24 08/25/24 08/25/24 Range/Units 06:25 04:14 00:23 WBC 10.7 (4.8-10.8) x10^3/uL RBC 3.50 L (4.20-5.40) 10^6/uL Hgb 10.9 L (12.0-16.0) g/dL Hct 34.1 L (37.0-47.0) % MCV 97.4 (81.0-99.0) fL MCH 31.1 H (27.0-31.0) pg MCHC 32.0 (32.0-36.0) g/dL RDW 14.9 (12.0-15.0) % Plt Count 334 (130-450) 10^3/uL MPV 8.8 (7.9-10.8) fL Neut # (Auto) (1.5-6.6) 10^3/uL Lymph # (Auto) (1.5-3.5) 10^3/uL [place] # (Auto) (0.0-1.0) 10^3/uL Eos # (Auto) (0.0-0.7) 10^3/uL Baso # (Auto) (0.0-0.1) 10^3/uL Absolute Nucleated RBC x10^3/uL Nucleated RBC % /100WBC VBG pH 7.426 H (7.31-7.41) Ionized Calcium 1.03 L (1.15-1.33) mmol/L Sodium 136 (135-145) mmol/L Potassium 4.3 4.6 H (3.5-4.5) mmol/L Chloride 106 (101-111) mmol/L Carbon Dioxide 21 (21-32) mmol/L Anion Gap 9.0 (6-13) BUN 28 H (6-20) mg/dL Creatinine 1.3 (0.6-1.3) mg/dL Estimated GFR (MDRD) 40 L (>89) Glucose 105 H (74-104) mg/dL Calcium 8.1 L (8.5-10.3) mg/dL Phosphorus 3.9 4.1 (2.5-5.0) mg/dL Magnesium 2.2 2.2 (1.7-2.3) mg/dL Total Bilirubin 0.4 (0.2-1.0) mg/dL AST 19 (10-42) IU/L ALT 22 (10-60) IU/L Alkaline Phosphatase 61 (42-121) IU/L B-Natriuretic Peptide (5-100) pg/mL Total Protein 6.1 L (6.4-8.9) g/dL Albumin 3.3 (3.2-5.5) g/dL Globulin 2.8 (2.1-4.2) g/dL Albumin/Globulin Ratio 1.2 (1.0-2.2) TSH (0.34-5.60) uIU/mL Urine Color YELLOW Urine Clarity HAZY (CLEAR) Urine pH 5.5 (5.0-7.5) PH Ur Specific [place] 1.025 (1.002-1.030) Urine Protein 30 H (NEGATIVE) mg/dL Urine Glucose (UA) NEGATIVE (NEGATIVE) mg/dL Urine Ketones NEGATIVE (NEGATIVE) mg/dL Urine Occult Blood MODERATE H (NEGATIVE) Urine Nitrite NEGATIVE (NEGATIVE) Urine Bilirubin NEGATIVE (NEGATIVE) Urine Urobilinogen 0.2 (NORMAL) (NORMAL) E.U./dL Ur Leukocyte Esterase SMALL H (NEGATIVE) Urine RBC 0-5 (0-5) /HPF Urine WBC 4-5 (0-5) /HPF Ur Epithelial Cells FEW Transitional (<= Few) /HPF Ur Squamous Epith Cells MOD Squamous H (<= Few) Urine Bacteria Few (None Seen) /HPF Urine Culture Comments NOT INDICATED Nasal Influenza B PCR Nasal Influenza A PCR Nasal RSV (PCR) Nasal Screen MRSA (PCR) (NEGATIVE) Nasal SARS-CoV-2 (PCR) 08/24/24 08/24/24 08/24/24 Range/Units 16:01 12:57 12:55 WBC 11.1 H (4.8-10.8) x10^3/uL RBC 4.01 L (4.20-5.40) 10^6/uL Hgb 12.4 (12.0-16.0) g/dL Hct 38.5 (37.0-47.0) % MCV 96.0 (81.0-99.0) fL MCH 30.9 (27.0-31.0) pg MCHC 32.2 (32.0-36.0) g/dL RDW 14.6 (12.0-15.0) % Plt Count 415 (130-450) 10^3/uL MPV 8.7 (7.9-10.8) fL Neut # (Auto) 9.2 H (1.5-6.6) 10^3/uL Lymph # (Auto) 1.2 L (1.5-3.5) 10^3/uL [place] # (Auto) 0.6 (0.0-1.0) 10^3/uL Eos # (Auto) 0.0 (0.0-0.7) 10^3/uL Baso # (Auto) 0.0 (0.0-0.1) 10^3/uL Absolute Nucleated RBC 0.00 x10^3/uL Nucleated RBC % 0.0 /100WBC VBG pH (7.31-7.41) Ionized Calcium (1.15-1.33) mmol/L Sodium 137 (135-145) mmol/L Potassium 3.4 L (3.5-4.5) mmol/L Chloride 99 L (101-111) mmol/L Carbon Dioxide 25 (21-32) mmol/L Anion Gap 13.0 (6-13) BUN 26 H (6-20) mg/dL Creatinine 1.2 (0.6-1.3) mg/dL Estimated GFR (MDRD) 43 L (>89) Glucose 138 H (74-104) mg/dL Calcium 9.1 (8.5-10.3) mg/dL Phosphorus (2.5-5.0) mg/dL Magnesium 1.7 (1.7-2.3) mg/dL Total Bilirubin 0.7 (0.2-1.0) mg/dL AST 18 (10-42) IU/L ALT 25 (10-60) IU/L Alkaline Phosphatase 70 (42-121) IU/L B-Natriuretic Peptide 851 H (5-100) pg/mL Total Protein 6.9 (6.4-8.9) g/dL Albumin 3.9 (3.2-5.5) g/dL Globulin 3.0 (2.1-4.2) g/dL Albumin/Globulin Ratio 1.3 (1.0-2.2) TSH 2.20 (0.34-5.60) uIU/mL Urine Color Urine Clarity (CLEAR) Urine pH (5.0-7.5) PH Ur Specific [place] (1.002-1.030) Urine Protein (NEGATIVE) mg/dL Urine Glucose (UA) (NEGATIVE) mg/dL Urine Ketones (NEGATIVE) mg/dL Urine Occult Blood (NEGATIVE) Urine Nitrite (NEGATIVE) Urine Bilirubin (NEGATIVE) Urine Urobilinogen (NORMAL) E.U./dL Ur Leukocyte Esterase (NEGATIVE) Urine RBC (0-5) /HPF Urine WBC (0-5) /HPF Ur Epithelial Cells (<= Few) /HPF Ur Squamous Epith Cells (<= Few) Urine Bacteria (None Seen) /HPF Urine Culture Comments Nasal Influenza B PCR NOT DETECTED Nasal Influenza A PCR NOT DETECTED Nasal RSV (PCR) NOT DETECTED Nasal Screen MRSA (PCR) NEGATIVE (NEGATIVE) Nasal SARS-CoV-2 (PCR) NOT DETECTED Assessment/Plan Problem List (1) Atrial fibrillation with rapid ventricular response: Impression: Resolved. Patient presented with new onset atrial fibrillation with RVR. Per patient, she has no cardiac history. This morning, she converted to normal sinus rhythm after digoxin and amiodarone. Continue these medications for 24 hours. Will switch to oral amiodarone and metoprolol tomorrow. Chest x-ray does show enlarged cardiac silhouette, bilateral pleural effusions. proBNP elevated at 800. Echo ordered stat, pending. IV metoprolol 5 mg 3 times daily with hold parameters switched to oral metoprolol to start tomorrow. Unable to receive a few doses due to hypotension. Will start on amiodarone and digoxin. [id number] score of 4. Continue Eliquis 5 mg twice daily at this time. (2) Acute hypoxic respiratory failure: Impression: Patient requiring 4 L of oxygen, is experiencing tachypnea as well. Lung exam reveals mild bibasilar crackles. Likely due to fluid boluses received. Echo pending for evaluation of heart failure. Will trial 1 dose of IV Lasix. Continue strict ins and outs. (3) Leukocytosis: Impression: Resolved, likely reactive to above. Did receive 1 dose of Rocephin and doxycycline. Will monitor off antibiotics at this time. Qualifiers: Leukocytosis type: unspecified Qualified Code(s): D72.829 - Elevated white blood cell count, unspecified (4) Diarrhea: Impression: Resolved. Continue to monitor. Qualifiers: Diarrhea type: presumed infectious Qualified Code(s): R19.7 - Diarrhea, unspecified (5) HTN (hypertension): Impression: Patient on amlodipine and losartan at home. Hold both medications as patient will likely require high doses of rate control which could lead to lower blood pressures. Qualifiers: Hypertension type: unspecified Qualified Code(s): I10 - Essential (primary) hypertension (6) Hypothyroidism: Impression: TSH, T4 ordered, within normal limits. Continue Synthroid. Qualifiers: Hypothyroidism type: unspecified Qualified Code(s): E03.9 - Hypothyroidism, unspecified
[2024-08-25] MEDS: DIGOXIN 500 MCG/2 ML AMP IVP SCH (10:12)
[2024-08-25] MEDS: AMIODARONE 360 MG/200 ML 200 ML IV SCH (13:21)
[2024-08-25] MEDS: AMIODARONE 150 MG/3 ML VIAL IVP STA (17:31)
[2024-08-26] MEDS: ONDANSETRON ODT 4 MG TABLET TL PRN (01:56)
[2024-08-26 05:04] LABS: HCT - HEMATOCRIT 36.6 % (37.0-47.0); HGB - HEMOGLOBIN 11.9 g/dL (12.0-16.0); MEAN CORPUSCULAR HEMOGLOBIN 31.7 pg (27.0-31.0); MEAN CORPUSCULAR HGB CONC 32.5 g/dL (32.0-36.0); MEAN CORPUSCULAR VOLUME 97.6 fL (81.0-99.0); MEAN PLATELET VOLUME 8.8 fL (7.9-10.8); RED BLOOD COUNT 3.75 10^6/uL (4.20-5.40); RED CELL DISTRIBUTION WIDTH 14.6 % (12.0-15.0); WHITE BLOOD COUNT 12.1 x10^3/uL (4.8-10.8)
[2024-08-26 05:07] LABS: CALCIUM, IONIZED 1.06 mmol/L (1.15-1.33); VBG PH 7.419 (7.31-7.41)
[2024-08-26 05:18] LABS: CALCIUM 8.2 mg/dL (8.5-10.3); CREATININE 1.1 mg/dL (0.6-1.3); MAGNESIUM 1.8 mg/dL (1.7-2.3); PHOSPHORUS 3.4 mg/dL (2.5-5.0); POTASSIUM 3.6 mmol/L (3.5-4.5)
[2024-08-26] MEDS: POTASSIUM CHLORIDE 20 MEQ TABLET PO ONE (07:36)
[2024-08-26] MEDS: MULTIVITAMIN W/MINERALS TABLET PO SCH (07:36)
[2024-08-26] MEDS: FUROSEMIDE 20 MG/2 ML VIAL IVP SCH (07:36)
[2024-08-26] MEDS: MAGNESIUM OXIDE 400 MG TABLET PO ONE (07:36)
[2024-08-26] MEDS: METOPROLOL SUCCINATE 25 MG TABLET PO SCH (08:48)
[2024-08-26] MEDS: AMIODARONE 200 MG TABLET PO SCH (08:48)
--- NOTE | 2024-08-26 11:04 | XRAY Report ---
PROCEDURE: XR Chest 2V INDICATIONS: DRISS, worsening oxygenation TECHNIQUE: 2 views of the chest were acquired. COMPARISON: 08/24/2024 FINDINGS: Surgical changes and devices: None. Lungs and pleura: Moderate bilateral pleural effusions are seen. Overlying atelectasis can be seen. Generalized interstitial prominence can be seen. Low lung volumes can be seen, causing a crowded appe arance to the lung markings. Mediastinum: Mediastinal contours appear normal. Heart size is moderately enlarged. Calcification is seen of the aortic arch. Bones and chest wall: No suspicious bony lesions. Age-appropriate degenerative changes are seen. O verlying soft tissues appear unremarkable. IMPRESSION: Worsening bilateral pleural effusions. There is continued moderate cardiomegaly. CHF is suspected. Low lung volumes. Reviewed by: Ronald Fuller MD on 08/26/2024 10:[address] [facility] Approved by: Ronald Fuller MD on 08/26/2024 10:[address] [facility] Station ID: [id number]
--- NOTE | 2024-08-26 11:05 | XRAY Report ---
PROCEDURE: XR Abdomen 2 V INDICATIONS: abdominal pain TECHNIQUE: 2 views of the abdomen were acquired. COMPARISON: Correlation is made with the accompanying imaging. Correlation is made with prior plain films, 04/22/2017. FINDINGS: Surgical changes and devices: None. Bowel: No pneumoperitoneum. The bowel gas pattern is normal. Stool load within normal limits. Soft tissues: No masses; visualized solid organ contours appear normal in size. A calcified focus ca n be seen involving the left pelvis, measuring 17 mm, which is similar to 2017. Differential diagnosi s includes a bladder stone. Bones: No suspicious bony abnormalities. Degenerative changes are seen, particularly involving the l ower lumbar spine on the right hip. IMPRESSION: No acute abdominal pathology. Reviewed by: Ronald Fuller MD on 08/26/2024 10:04 AM [facility] Approved by: Ronald Fuller MD on 08/26/2024 10:04 AM [facility] Station ID: [id number]
[2024-08-26] MEDS: CALCIUM CARBONATE CHEW 500 MG TABLET PO SCH (11:50)
--- NOTE | 2024-08-26 12:01 | PROVIDER PROGRESS NOTE ---
Documented by User: Fan [email or web address] 08/26/24 12:03 Subjective Prog Note Date Prog Note Date: 08/26/24 Prog Note Time: 09:15 Subjective Pt reports feeling: Improved (Pt doesn't have shortness of breath. ) Subjective: Pt today is sitting up, she complains of nausea and she has no appetite today. She's alerted and oriented. She has no cough, fever or nor chills. She doesn't feel her heart rate is elevated nor any palpitation, Current Medications Current Medications Current Medications: Current Medications Generic Name Dose Route Start Last Admin Trade Name Freq PRN Reason Stop Dose Admin Acetaminophen 650 mg 08/24/24 16:02 Acetaminophen 325 Mg Tablet PO Q4HR PRN Pain 1 to 4, or Fever Hydrocodone Bitart/Acetaminophen 1 tab 08/24/24 16:02 Hydrocod/Acetam 5/325 Mg Tablet PO Q4HR PRN Pain 5 to 7 Amiodarone HCl 200 mg 08/26/24 09:00 08/26/24 08:48 Amiodarone 200 Mg Tablet PO 200 mg DAILY AURE Administration Apixaban 5 mg 08/24/24 21:00 08/26/24 08:48 Apixaban 5 Mg Tablet PO 5 mg BID AURE Administration Calcium Carbonate/Glycine 1,250 mg 08/26/24 10:00 Calcium Carbonate Chew 500 Mg Tablet PO 08/26/24 14:01 Q4H AURE Protocol Cholecalciferol 25 mcg 08/25/24 09:00 08/26/24 08:48 Cholecalciferol 25 Mcg Tablet PO 25 mcg DAILY AURE Administration Furosemide 20 mg 08/26/24 08:00 08/26/24 07:36 Furosemide 20 Mg/2 Ml Vial IVP 20 mg BIDDIURETIC AURE Administration Levothyroxine Sodium 50 mcg 08/25/24 07:00 08/26/24 06:14 Levothyroxine 25 Mcg Tablet PO 50 mcg QDAC AURE Administration Metoprolol Succinate 25 mg 08/26/24 09:00 08/26/24 08:48 Metoprolol Succinate 25 Mg Tablet PO 25 mg DAILY AURE Administration Multivitamins/Minerals 1 tab 08/26/24 08:00 08/26/24 07:36 Multivitamin W/Minerals Tablet PO 1 tab DAILYWM AURE Administration Ondansetron HCl 4 mg 08/24/24 17:22 08/26/24 07:57 Ondansetron 4 Mg/2 Ml Vial IVP 4 mg Q6HR PRN Administration Nausea / Vomiting Ondansetron HCl 4 mg 08/24/24 17:22 08/26/24 01:56 Ondansetron Odt 4 Mg Tablet TL 4 mg Q6HR PRN Administration Nausea / Vomiting Sodium Chloride 10 ml 08/24/24 16:02 Sodium Chloride Flush 0.9% 10 Ml Syringe IVP PRN PRN NEEDED PER PROVIDER ORDERS Sodium Chloride 10 ml 08/24/24 17:00 08/26/24 08:48 Sodium Chloride Flush 0.9% 10 Ml Syringe IVP 10 ml 0100,0900,1700 AURE Administration Objective Vital Signs/Intake & Output Reviewed Vital Signs: Yes Vital Signs: Vital Signs x48h Temp Pulse Resp BP Pulse Ox O2 Flow Rate 08/26/24 09:00 3 08/26/24 09:00 79 18 112/72 94 3 08/26/24 08:00 36.6 C 75 20 129/61 93 3 08/26/24 07:00 36.9 C 81 26 H 122/58 L 94 5 08/26/24 06:00 82 26 H 118/65 94 5 08/26/24 05:00 77 24 118/62 95 5 08/26/24 04:00 36.8 C 77 18 126/51 L 95 5 08/26/24 03:00 80 24 112/60 95 4 Intake & Output: Intake & Output 08/24/24 08/25/24 08/26/24 08/27/24 05:59 05:59 05:59 05:59 Intake Total 2047 1498 / 1498 150 / 150 Output Total 0 / 0 2400 / 2400 600 / 600 Balance 2047 -902 / -902 -450 / -450 Weight (kg) 56 kg 57 kg 56.5 kg Objective General Appearance: positive No acute distress and Alert Eyes Bilateral: positive Normal inspection and PERRL ENT: positive ENT inspection nml Neck: positive Nml inspection Respiratory: positive Chest non-tender (bibasilar crackles noted) Cardiovascular: positive Regular rate & rhythm Abdomen: positive Non-tender Back: positive Nml inspection Skin: positive Color nml Extremities: positive Non-tender (mild edma was observed on her right foot) and Full ROM Lab Results 08/26/24 04:20 08/26/24 04:20 Other Labs: Lab Results x24hrs 08/26/24 Range/Units 04:20 WBC 12.1 H (4.8-10.8) x10^3/uL RBC 3.75 L (4.20-5.40) 10^6/uL Hgb 11.9 L (12.0-16.0) g/dL Hct 36.6 L (37.0-47.0) % MCV 97.6 (81.0-99.0) fL MCH 31.7 H (27.0-31.0) pg MCHC 32.5 (32.0-36.0) g/dL RDW 14.6 (12.0-15.0) % Plt Count 344 (130-450) 10^3/uL MPV 8.8 (7.9-10.8) fL VBG pH 7.419 H (7.31-7.41) Ionized Calcium 1.06 L (1.15-1.33) mmol/L Sodium 138 (135-145) mmol/L Potassium 3.6 (3.5-4.5) mmol/L Chloride 104 (101-111) mmol/L Carbon Dioxide 27 (21-32) mmol/L Anion Gap 7.0 (6-13) BUN 21 H (6-20) mg/dL Creatinine 1.1 (0.6-1.3) mg/dL Estimated GFR (MDRD) 48 L (>89) Glucose 116 H (74-104) mg/dL Calcium 8.2 L (8.5-10.3) mg/dL Phosphorus 3.4 (2.5-5.0) mg/dL Magnesium 1.8 (1.7-2.3) mg/dL Procalcitonin Immunoas 0.10 (<0.5) ng/mL Diagnostic Imaging Diagnostic Imaging Results: positive Final report reviewed ABX Reporting Has patient been on IV antibiotics over the past 48 hours?: Yes Assessment/Plan Problem List (1) Acute hypoxic respiratory failure: Impression: Patient requiring 3 L of oxygen, her spo2 is 93%. Lung exam reveals mild bibasilar crackles. Likely due to fluid boluses received. Echo pending for evaluation of heart failure. continue with 1 dose of IV Lasix and add spironolactone. -recent x ray r/u PNA (2) Atrial fibrillation with rapid ventricular response: Impression: -A fib with RVR is resolved. She is in normal sinus rhythm. She's currently on oral amiodarone and metoprolol. -echo is ordered and pending result. - [id number] score of 4. Continue Eliquis 5 mg twice daily at this time. - more fluid is indicated on her new xrays will continue to diuresis with lasix (3) Leukocytosis: Impression: white count is at 12.1. New XR of the chest is ordered and PNA is ruled out. Procalcitonin is also negative Will discontinue antibiotics Qualifiers: Leukocytosis type: unspecified Qualified Code(s): D72.829 - Elevated white blood cell count, unspecified (4) Diarrhea: Impression: Diarrhea is resolved. However pt's last bowel movement was 2 days ago. She was able to pass gas. Xr of abdomen is ordered to r/o menstric ichimia Qualifiers: Diarrhea type: presumed infectious Qualified Code(s): R19.7 - Diarrhea, unspecified (5) Nausea: Impression: she reported nausea and will treated with IV zofran. (6) HTN (hypertension): Impression: b/p is normalized. Pt is on PO metoprolol and amiodarone which helps with blood pressure. Qualifiers: Hypertension type: unspecified Qualified Code(s): I10 - Essential (primary) hypertension (7) Hypothyroidism: Impression: lab values are normal. Pt has been taking her home medication of synthroid for management of hypothyroidism. Qualifiers: Hypothyroidism type: unspecified Qualified Code(s): E03.9 - Hypothyroidism, unspecified Documented by User: Moses Baxter MD 08/26/24 13:43 Subjective Subjective Subjective: Pt today is sitting up, she complains of nausea and she has no appetite today. She has no abdominal pain. She's alerted and oriented. She has no cough, fever or nor chills. She doesn't feel her heart rate is elevated nor any palpitation. Objective Objective ENT: positive Pharynx nml and No signs of dehydration Neck: positive Thyroid nml and No JVD Cardiovascular: positive No murmur; negative Tachycardia Abdomen: positive No distention; negative Tenderness, Guarding, Hepatomegaly, Splenomegaly or Mass Neurologic/Psychiatric: positive Oriented x3, Motor nml and Mood/affect nml; negative Weakness Lab Results 08/26/24 04:20 08/26/24 04:20 Assessment/Plan Problem List (1) Acute hypoxic respiratory failure: Impression: Patient requiring 3 L of oxygen, her spo2 is 93%. Decreasing oxygen requirements. Lung exam reveals mild bibasilar crackles. Likely due to fluid boluses received. Echo pending for evaluation and confirnmation of heart failure. Repeat CXR shows worsening bilateral pleural effusions, cardiomegaly. Will increase IV Lasix to 20mg BID. Low likelihood of pneumonia - mildly elevated leukocytosis (continue to trend), afebrile, negative procalcitonin. (2) Atrial fibrillation with rapid ventricular response: Impression: Resolved. She converted to normal sinus rhythm. Transitioned off amiodarone drip, digoxin stopped. Today, will transition to oral amiodarone and metoprolol. Echo is ordered and pending result. [id number] score of 4. Continue Eliquis 5 mg twice daily at this time. (3) Leukocytosis: Impression: Continue to trend, monitor off antibiotics. Qualifiers: Leukocytosis type: unspecified Qualified Code(s): D72.829 - Elevated white blood cell count, unspecified (4) Diarrhea: Impression: Diarrhea is resolved. Passing gas, no abdominal tenderness. Continues to have nausea. XR abdomen with no acute abnormalities, continue to monitor. Qualifiers: Diarrhea type: presumed infectious Qualified Code(s): R19.7 - Diarrhea, unspecified (5) Nausea: Impression: Continued nausea, could be side effect of amiodarone drip which has now been stopped. Passing gas, no abdominal tenderness. Continues to have nausea. XR abdomen with no acute abnormalities, continue to monitor. (6) HTN (hypertension): Impression: Continue amiodarone and metoprolol. Hold CCB, ECHO remains pending. Qualifiers: Hypertension type: unspecified Qualified Code(s): I10 - Essential (primary) hypertension (7) Hypothyroidism: Impression: Continue home Synthroid. Qualifiers: Hypothyroidism type: unspecified Qualified Code(s): E03.9 - Hypothyroidism, unspecified
[2024-08-26] MEDS: AMIODARONE 150 MG/100 ML 100 ML IV ONE (16:41)
[2024-08-26] MEDS: AMIODARONE 360 MG/200 ML 200 ML IV ONE (16:42)
[2024-08-27 05:00] LABS: HGB - HEMOGLOBIN 11.8 g/dL (12.0-16.0); MEAN CORPUSCULAR HEMOGLOBIN 31.1 pg (27.0-31.0); MEAN CORPUSCULAR HGB CONC 31.9 g/dL (32.0-36.0); MEAN CORPUSCULAR VOLUME 97.4 fL (81.0-99.0); MEAN PLATELET VOLUME 8.6 fL (7.9-10.8); RED BLOOD COUNT 3.8 10^6/uL (4.20-5.40); RED CELL DISTRIBUTION WIDTH 14.3 % (12.0-15.0); WHITE BLOOD COUNT 10.7 x10^3/uL (4.8-10.8)
[2024-08-27 05:18] LABS: CALCIUM 8.7 mg/dL (8.5-10.3); CREATININE 0.8 mg/dL (0.6-1.3); MAGNESIUM 1.6 mg/dL (1.7-2.3); POTASSIUM 3.5 mmol/L (3.5-4.5)
--- NOTE | 2024-08-27 08:56 | PROVIDER PROGRESS NOTE ---
Subjective Subjective Subjective: Patient is feeling better today. She states her nausea has improved. Her appetite is improving. She states that she has had no shortness of breath. She has no cough. She denies any fevers, chills. Current Medications Current Medications Current Medications: Current Medications Generic Name Dose Route Start Last Admin Trade Name Freq PRN Reason Stop Dose Admin Acetaminophen 650 mg 08/24/24 16:02 Acetaminophen 325 Mg Tablet PO Q4HR PRN Pain 1 to 4, or Fever Hydrocodone Bitart/Acetaminophen 1 tab 08/24/24 16:02 Hydrocod/Acetam 5/325 Mg Tablet PO Q4HR PRN Pain 5 to 7 Amiodarone HCl 200 mg 08/26/24 09:00 08/26/24 08:48 Amiodarone 200 Mg Tablet PO 200 mg DAILY AURE Administration Apixaban 5 mg 08/24/24 21:00 08/26/24 21:16 Apixaban 5 Mg Tablet PO 5 mg BID AURE Administration Cholecalciferol 25 mcg 08/25/24 09:00 08/26/24 08:48 Cholecalciferol 25 Mcg Tablet PO 25 mcg DAILY AURE Administration Furosemide 20 mg 08/26/24 08:00 08/27/24 07:47 Furosemide 20 Mg/2 Ml Vial IVP 20 mg BIDDIURETIC AURE Administration Levothyroxine Sodium 50 mcg 08/25/24 07:00 08/27/24 06:43 Levothyroxine 25 Mcg Tablet PO 50 mcg QDAC AURE Administration Metoprolol Succinate 25 mg 08/26/24 09:00 08/26/24 08:48 Metoprolol Succinate 25 Mg Tablet PO 25 mg DAILY AURE Administration Multivitamins/Minerals 1 tab 08/26/24 08:00 08/26/24 07:36 Multivitamin W/Minerals Tablet PO 1 tab DAILYWM AURE Administration Ondansetron HCl 4 mg 08/24/24 17:22 08/26/24 07:57 Ondansetron 4 Mg/2 Ml Vial IVP 4 mg Q6HR PRN Administration Nausea / Vomiting Ondansetron HCl 4 mg 08/24/24 17:22 08/26/24 01:56 Ondansetron Odt 4 Mg Tablet TL 4 mg Q6HR PRN Administration Nausea / Vomiting Sodium Chloride 10 ml 08/24/24 16:02 Sodium Chloride Flush 0.9% 10 Ml Syringe IVP PRN PRN NEEDED PER PROVIDER ORDERS Sodium Chloride 10 ml 08/24/24 17:00 08/27/24 06:35 Sodium Chloride Flush 0.9% 10 Ml Syringe IVP 10 ml 0100,0900,1700 [facility] Administration Objective Vital Signs/Intake & Output Reviewed Vital Signs: Yes Vital Signs: Vital Signs x48h Temp Pulse Resp BP Pulse Ox O2 Flow Rate 08/27/24 07:50 98.4 F 71 120/60 92 2 08/27/24 05:00 98.1 F 70 15 121/62 93 3 08/27/24 01:00 98.1 F 82 16 118/58 L 93 Intake & Output: Intake & Output 08/25/24 08/26/24 08/27/24 08/28/24 05:59 05:59 05:59 05:59 Intake Total 2047 1698 / 1698 760 / 760 Output Total 0 / 0 2400 / 2400 1750 / 1750 50 / 50 Balance 2047 -702 / -702 -990 / -990 -50 / -50 Weight (kg) 56 kg 57 kg 56.5 kg 54 kg Objective General Appearance: positive No acute distress and Alert Eyes Bilateral: positive Normal inspection and PERRL ENT: positive ENT inspection nml, Pharynx nml and No signs of dehydration Neck: positive Nml inspection, Thyroid nml and No JVD Respiratory: positive Chest non-tender (bibasilar crackles noted) and Rales (bibasilar crackles noted) Cardiovascular: positive Regular rate & rhythm and No murmur; negative Tachycardia Abdomen: positive Non-tender and No distention; negative Tenderness, Guarding, Hepatomegaly, Splenomegaly or Mass Back: positive Nml inspection Skin: positive Color nml Extremities: positive Non-tender (mild edma was observed on her right foot) and Full ROM Neurologic/Psychiatric: positive Oriented x3, Motor nml and Mood/affect nml; negative Weakness Lab Results 08/27/24 04:20 08/27/24 04:20 Other Labs: Lab Results x24hrs 08/27/24 Range/Units 04:20 WBC 10.7 (4.8-10.8) x10^3/uL RBC 3.80 L (4.20-5.40) 10^6/uL Hgb 11.8 L (12.0-16.0) g/dL Hct 37.0 (37.0-47.0) % MCV 97.4 (81.0-99.0) fL MCH 31.1 H (27.0-31.0) pg MCHC 31.9 L (32.0-36.0) g/dL RDW 14.3 (12.0-15.0) % Plt Count 362 (130-450) 10^3/uL MPV 8.6 (7.9-10.8) fL Sodium 138 (135-145) mmol/L Potassium 3.5 (3.5-4.5) mmol/L Chloride 99 L (101-111) mmol/L Carbon Dioxide 32 (21-32) mmol/L Anion Gap 7.0 (6-13) BUN 14 (6-20) mg/dL Creatinine 0.8 (0.6-1.3) mg/dL Estimated GFR (MDRD) 69 L (>89) Glucose 102 (74-104) mg/dL Calcium 8.7 (8.5-10.3) mg/dL Magnesium 1.6 L (1.7-2.3) mg/dL Diagnostic Imaging Diagnostic Imaging Results: positive Final report reviewed ABX Reporting Has patient been on IV antibiotics over the past 48 hours?: Yes Assessment/Plan Problem List (1) Acute hypoxic respiratory failure: Impression: Patient requiring 2L today; Decreasing oxygen requirements. Lung exam reveals mild bibasilar crackles. Echo pending for evaluation and confirnmation of heart failure - mutiple calls made by myself and nurse to get read on this, was ordered STAT on 08/25. Repeat CXR doen yesterday shows worsening bilateral pleural effusions, cardiomegaly. Needs further IV diuresis today; continue IV Lasix to 20mg BID. Low likelihood of pneumonia - mildly elevated leukocytosis (continue to trend), afebrile, negative procalcitonin. (2) Atrial fibrillation with rapid ventricular response: Impression: Resolved. She converted to normal sinus rhythm. Transitioned off amiodarone drip, digoxin stopped. Transitioned to oral amiodarone and metoprolol. ECHO is ordered and pending result. [id number] score of 4. Continue Eliquis 5 mg twice daily at this time. (3) Leukocytosis: Impression: Resolved today. Continue to trend, monitor off antibiotics. Qualifiers: Leukocytosis type: unspecified Qualified Code(s): D72.829 - Elevated white blood cell count, unspecified (4) Diarrhea: Impression: Diarrhea is resolved. Passing gas, no abdominal tenderness. XR abdomen with no acute abnormalities, continue to monitor. Qualifiers: Diarrhea type: presumed infectious Qualified Code(s): R19.7 - Diarrhea, unspecified (5) Nausea: Impression: Resolved. Could be side effect of amiodarone drip which has now been stopped. Passing gas, no abdominal tenderness. Continues to have nausea. XR abdomen with no acute abnormalities, continue to monitor. (6) HTN (hypertension): Impression: Continue amiodarone and metoprolol. Hold CCB, ECHO remains pending. Qualifiers: Hypertension type: unspecified Qualified Code(s): I10 - Essential (primary) hypertension (7) Hypothyroidism: Impression: Continue home Synthroid. Qualifiers: Hypothyroidism type: unspecified Qualified Code(s): E03.9 - Hypothyroidism, unspecified
--- NOTE | 2024-08-27 12:55 | PT Plan of Care ---
Medical/Surgical Past History Past History Medical History (Updated 08/26/24 @ 11:58 by Fan Huffman) Hypothyroidism HTN (hypertension) Surgical History (Updated 08/24/24 @ 12:35 by Anupama Jamison, RN, BSN) Hx of hysterectomy
[2024-08-27] MEDS: MAGNESIUM OXIDE 400 MG TABLET PO ONE (14:57)
[2024-08-28 06:00] LABS: HCT - HEMATOCRIT 37.5 % (37.0-47.0); HGB - HEMOGLOBIN 12.1 g/dL (12.0-16.0); MEAN CORPUSCULAR HEMOGLOBIN 31.2 pg (27.0-31.0); MEAN CORPUSCULAR HGB CONC 32.3 g/dL (32.0-36.0); MEAN CORPUSCULAR VOLUME 96.6 fL (81.0-99.0); MEAN PLATELET VOLUME 8.3 fL (7.9-10.8); RED BLOOD COUNT 3.88 10^6/uL (4.20-5.40); RED CELL DISTRIBUTION WIDTH 13.8 % (12.0-15.0); WHITE BLOOD COUNT 10.7 x10^3/uL (4.8-10.8)
[2024-08-28 06:12] LABS: CALCIUM 8.5 mg/dL (8.5-10.3); CREATININE 0.8 mg/dL (0.6-1.3); POTASSIUM 3.5 mmol/L (3.5-4.5)
[2024-08-28] MEDS: SODIUM CHLORIDE FLUSH 0.9% 10 ML SYRINGE IVP PRN (06:41)
--- NOTE | 2024-08-28 08:33 | Discharge Summary ---
"Discharge Summary Admit Date: 08/24/24 Discharge Date: 08/28/24 Discharging Provider: Dr. Moses Baxter Discharge Facility Name: Home, self care DIAGNOSES Admission Diagnoses: Atrial fibrillation with rapid ventricular response Leukocytosis Diarrhea HTN (hypertension) Hypothyroidism Discharge Diagnoses with Status of Each Condition: Acute hypoxic respiratory failurepatient requiring 2 L at night, none during the day. No oxygen required with ambulation. Lung exam initially had crackles, and she was diuresed with IV Lasix during milligrams twice daily. Her echo we does not back, but there is a likelihood that she has heart failure. Will discharge her on 20 mg oral Lasix for the next 5 days. She was then advised to follow-up with her primary care physician trimmer operator to see if this needs to be continued. She also should get a sleep study, likely has diagnosis of underlying obstructive sleep apnea. Atrial fibrillation with rapid ventricular responsepatient converted to normal sinus rhythm. Will continue amiodarone 200 mg as well as metoprolol 50 mg daily upon discharge. Will also continue Eliquis 5 mg twice daily on discharge. She already has a referral to a trimmer operator in the outpatient setting, advised extensively to follow-up with them. Echo read is still not back; will follow-up if received report, and also forward to her primary care physician. Leukocytosisresolved. Monitored off antibiotics. Diarrhearesolved. Nausearesolved. Hypertensioncontinue amiodarone and metoprolol. Advised to hold her amlodipine on discharge. Hypothyroidismcontinue her home Synthroid. HPI History of Present Illness: Patient is a 79-year-old female with history of hypertension, hypothyroidism who presents after few weeks of feeling unwell. Approximately 2 weeks ago, she had 4 to 5 days of diarrhea, with increased bowel movements daily. At that time, she also adams cramping abdominal pain. This resolved, but she still continued to feel unwell. As such, she said to go to a walk-in clinic todayhere, she endorses feeling not well, tired, and having no appetite. She was found to be in new onset atrial fibrillation with RVR, and was advised to come to the emergency room. In the ED, her heart rate was as high as 160. She was given 2 pushes of Cardizem, with improvement to 1 20-1 40. She has been normal to hypertensive. She did receive some IV fluids, which resulted in her oxygen saturations going from 97% down to 87%; she is requiring about 4 L of oxygen at this time. She has been afebrile. Lab work was reviewed which showed a mild leukocytosis of 11.1. Potassium was mildly low at 3.4. Her BNP was elevated at 851. Chest x- ray showed mild to moderate bibasilar consolidations. Enlarged cardiopericardial silhouette was also noted. She states that this time, she is not feeling any palpitations, does not feel like her heart is racing. She denies any fevers, chills. She does have a mild dry cough, which she attributes to her dry mouth. She has no sputum production. Her diarrhea has completely resolved. She has no dysuria, urinary frequency, urinary incontinence. CONSULTS | PROCEDURES Consultations: PT, OT, social work Procedures: Chest x-ray, abdominal x-ray HOSPITAL COURSE Hospital Course: Patient is a 79-year-old female with history of hypertension who initially presented with diarrhea. She was found to be in atrial fibrillation with RVR. This was initially attributed to possible volume depletion. She was given IV fluid resuscitation. She started on metoprolol as well as an amiodarone drip. She converted to normal sinus rhythm. She will be continued on oral amiodarone 200 mg as well as metoprolol 50 mg daily. Her [id number] was also 4. Anticoagulation was discussed with her, and she was okay with starting it. We started her on Eliquis 5 mg twice daily. During her stay, she was hypoxic requiring approximately 2 to 4 L of oxygen. Chest x-ray showed bilateral pleural effusions and cardiomegaly. Echo was done, report remains pending. However, she was diuresed with clinical improvement. Will continue her on some oral Lasix for the next week. She was advised extensively to follow-up with her primary care physician, as well as establish care with a trimmer operator. She already has referral for this. Her diarrhea resolved, as did her nausea, abdominal x-ray was also done to rule out any SBO, and it was negative. ALLERGIES Allergies Allergy/AdvReac Type Severity Reaction Status Date / Time No Known Drug Allergies Allergy Verified 08/24/24 12:36 MEDICATIONS Ambulatory Orders Medication Instructions Recorded Confirmed cholecalciferol (vitamin D3) 50 1,000 unit PO DAILY 08/06/15 11/21/24 mcg (2,000 unit) capsule (Vitamin D3) levothyroxine 50 mcg tablet 50 mcg PO QDAC 08/24/24 08/24/24 amiodarone 200 mg tablet 200 mg PO DAILY #30 tabs 08/28/24 apixaban 5 mg tablet (Eliquis) 5 mg PO BID #60 tabs 08/28/24 furosemide 20 mg tablet (Lasix) 20 mg PO DAILY #7 tabs 08/28/24 metoprolol succinate 25 mg 25 mg PO DAILY #30 tabs 08/28/24 tablet,extended release 24 hr [id number] 1 tab PO DAILYWM #30 tabs 08/28/24 fumarate 19 mg-folic acid 400 mcg tablet (Therapeutic-M) PHYSICAL EXAM AT DISCHARGE General Appearance: positive No acute distress and Alert; negative Anxious Eyes Bilateral: positive Normal inspection, PERRL and EOMI ENT: positive ENT inspection nml, Pharynx nml and No signs of dehydration Neck: positive Nml inspection, Thyroid nml, No JVD and Trachea midline Respiratory: positive Chest non-tender, No respiratory distress and Breath sounds nml; negative Wheezes, Rales or Rhonchi Cardiovascular: positive Regular rate & rhythm, No murmur and No gallop; negative Tachycardia Peripheral Pulses: positive 2+ Abdomen: positive Non-tender, No organomegaly and No distention; negative Hepatomegaly or Splenomegaly Back: positive Nml inspection; negative CVA tenderness (R) or CVA tenderness (L) Skin: positive Color nml, No rash and Warm Extremities: positive Non-tender, Full ROM, Nml appearance and No pedal edema Neurologic/Psychiatric: positive Oriented x3 and Mood/affect nml LABS 08/28/24 05:49 08/28/24 05:49 DIAGNOSTIC IMAGING Diagnostic Imaging Results: Final report reviewed SEPSIS Current Stage of Sepsis: Ruled out QUALITY (Female Hip Fx Only) Was patient sent home on osteoporosis medication?: No FOLLOW UP Follow Up: Follow-up with primary care doctor, as well as trimmer operator. TIME SPENT Time Spent in Discharge (Minutes): 35 Discharge Plan Discharge Patient Disposition: Home, Self Care Condition: Stable Prescriptions: New amiodarone 200 mg Tablet 200 mg PO DAILY Qty: 30 0RF Eliquis 5 mg Tablet 5 mg PO BID Qty: 60 0RF metoprolol succinate 25 mg Tablet Extended Release 24 Hr 25 mg PO DAILY Qty: 30 0RF Therapeutic-M 19 mg iron- 400 mcg Tablet 1 tab PO DAILYWM Qty: 30 0RF furosemide [Lasix] 20 mg tablet 20 mg PO DAILY Qty: 7 0RF Continued cholecalciferol (vitamin D3) [Vitamin D3] 2,000 UNIT capsule 1,000 unit PO DAILY levothyroxine 50 mcg tablet 50 mcg PO QDAC Patient Comments: take 1 tablet by mouth every morning ON AN EMPTY STOMACH Discontinued losartan 100 MG tablet 100 mg PO DAILY amlodipine [Norvasc] 10 MG tablet 10 mg PO DAILY Patient Comments: take 1 tablet by mouth once daily for high blood pressure ondansetron 4 mg tablet,disintegrating 4 mg PO Q8H PRN (Reason: nausea and vomiting) 7 Days Qty: 21 0RF Rx Instructions: stay well hydrated Activity Restrictions: Activity as Tolerated Diet: Low Sodium Health Concerns: You came in because you were not feeling well; weak, had diarrhea, and were nauseous. You were found to be in abnormal heart rhythm called atrial fibrillation with RVR. We started you on some medications for this through the IV in the ICU. We have transitioned you to two medications called metoprolol and amiodarone. Additionally, we talked about how you need to be on a blood thinner now. I have prescribed Eliquis; we talked about the dangers of this, and signs you to look out for, including dark stools, large bruises, bright red blood in your stool. Additionally, if you do fall or hit your head, we worry about things like a brain bleed so I would suggest if this were to occur, you be evaluated by medical professional. Additionally, while you are here, we noted that you had some fluid in your lungs. You were started on an IV water pill, with good results. I am sending you home with 7 more days of a water pill that you will take (furesomide). We did an ultrasound of your heart, and the final read remains pending; either I or your primary care provider, Mitra Mane, will discuss the results with you. Nevertheless, you do need to follow-up with a trimmer operator, or heart doctor, for atrial fibrillation. I understand any already sent you a referral, please continue to follow-up with Mitra, as well as his new trimmer operator. We are glad you are feeling better, thank you for allowing us to take care of you. Print Language: Yakut Patient Instructions: Atrial Fibrillation Dc, Diet Low Salt Dc Stand Alone Forms: PCP List Follow-up Care: Mitra Mane, GAS WELDER APPRENTICE [Primary Care Provider] -"
[2024-08-28 09:16] VITALS: O2SAT 91
== END 2024-08-28 11:55 | disposition home or self-care (01) | DRG 308 ==
LOC: ED 12:24 → ICU 15:48
PROVIDERS: ADMIT Internal Medicine; ATTEND Internal Medicine
DX: Z79.01 Long term (current) use of anticoagulants; J96.01 Acute respiratory failure with hypoxia; E87.6 Hypokalemia; E03.9 Hypothyroidism, unspecified; R05.8 Other specified cough; R11.0 Nausea; R19.7 Diarrhea, unspecified; D72.829 Elevated white blood cell count, unspecified; I48.91 Unspecified atrial fibrillation; I10 Essential (primary) hypertension; Z79.890 Hormone replacement therapy; Z79.899 Other long term (current) drug therapy